=== PATIENT | male | born 1980 | race Caucasian/White ===

== ENCOUNTER 2022-09-24 04:07 | Emergency (ER) | payer BC, SELFPAY ==
[2022-09-24 04:12] VITALS: BP 117/83; PULSE 89; RESP 16; TEMP 36.7; O2SAT 96; BMI 22.2
--- NOTE | 2022-09-24 04:42 | XR_ITS ---
PROCEDURE INFORMATION: Exam: XR Right Shoulder Exam date and time: 09/24/2022 4:45 AM Age: 42 years old Clinical indication: Pain; Patient HX: Patient had a seizure, possible dislocation of right shoulder; Additional info: Seizures TECHNIQUE: Imaging protocol: Radiologic exam of the right shoulder. Views: 2 or more views. COMPARISON: No relevant prior studies available. FINDINGS: Bones/joints: Anterior dislocation of the humerus in relation to the glenoid. No definite fracture. Soft tissues: Moderate soft tissue swelling surrounding the shoulder. IMPRESSION: Anterior dislocation of the humerus in relation to the glenoid. No definite fracture. Moderate soft tissue swelling surrounding the shoulder.
[2022-09-24 04:54] LABS: Basophils # 0.1 K/mm3 (0-0.2); Basophils % 0.6 % (0.1-2.0); Eosinophils # 0.3 K/mm3 (0.0-0.4); Eosinophils % 4.3 % (0.1-12.0); Hematocrit 46.4 % (42.0-52.0); Hemoglobin 15.9 g/dL (14.1-18.0); Lymphocytes # 3.7 K/mm3 (0.7-4.5); Lymphocytes % 47.8 % (10-50); Mean Corpuscular HGB Conc 34.3 g/dL (31.8-35.4); Mean Corpuscular Hemoglobin 30.1 pg (27.0-31.2); Mean Corpuscular Volume 87.5 fl (80-94); Mean Platelet Volume 8.1 fl (7.4-10.4); Monocytes # 0.4 K/mm3 (0.1-1.0); Monocytes % 5.3 % (1.7-9.3); Neutrophils # 3.2 K/mm3 (1.8-7.8); Platelet Count 214 K/mm3 (142-424); Red Cell Distribution Width 12.9 % (11.5-17.5); White Blood Count 7.7 K/mm3 (4.8-10.8)
[2022-09-24 04:56] LABS: Chloride 102 mmol/L (98-107)
[2022-09-24 04:57] LABS: Potassium 3.9 mmoL/L (3.5-5.1); Sodium 139 mmol/L (136-145)
[2022-09-24 04:59] LABS: Alanine Aminotransferase 33 U/L (12-78); Alkaline Phosphatase 74 U/L (38-126); Aspartate Amino Transferase 46 U/L (17-59); Bilirubin,Total 0.3 mg/dl (0.2-1.3); Blood Urea Nitrogen 14 mg/dl (9-20); Creatinine Clearance Estimated 88 mL/min (50-200); Estimated Glomerular Filt Rate 82 ml/min (>60); GFR (African American) 99 ML/MIN (>60)
[2022-09-24 05:00] LABS: Albumin Level 4.6 g/dl (3.5-5.0); Albumin/Globulin Ratio 1.4 (1.1-1.8); Anion Gap 19.9 mEq/L (5-15); Calcium 8.9 mg/dl (8.4-10.2); Carbon Dioxide 21 mmol/L (22.0-30.0); Globulin 3.3 g/dL (1.3-3.2); Glucose 118 mg/dl (74-100); Total Protein,Serum 7.9 g/dl (6.3-8.2)
--- NOTE | 2022-09-24 05:28 | PC.NURSE ---
Dr. Nieto at
[2022-09-24 05:32] VITALS: PULSE 78; RESP 26; TEMP 36.7; O2SAT 99
--- NOTE | 2022-09-24 05:35 | XR_ITS ---
PROCEDURE INFORMATION: Exam: XR Right Shoulder Exam date and time: 09/24/2022 5:39 AM Age: 42 years old Clinical indication: Pain; Shoulder; Right; Additional info: Post shoulder reduction TECHNIQUE: Imaging protocol: Radiologic exam of the right shoulder. Views: 1 view. COMPARISON: CR XR SHOULDER RT MIN 2V 09/24/2022 4:45 AM FINDINGS: Bones/joints: Interval reduction of an anterior shoulder dislocation. No lucent fracture line along the humeral head or glenoid seen on this single image. However, a Hill-Sachs defect may be difficult to visualize on radiographs alone. Consider CT or MRI shoulder if there is clinical concern for Hill-Sachs defect. Soft tissues: Moderate soft tissue swelling surrounding the shoulder. IMPRESSION: 1. Interval reduction of an anterior shoulder dislocation. 2. No lucent fracture line along the humeral head or glenoid seen on this single image. However, a Hill-Sachs defect may be difficult to visualize on radiographs alone. Consider CT or MRI shoulder if there is clinical concern for Hill-Sachs defect. 3. Moderate soft tissue swelling surrounding the shoulder.
[2022-09-24 05:47] VITALS: BP 123/87; PULSE 79; RESP 22; O2SAT 91
[2022-09-24 05:50] VITALS: BP 115/81; BP 122/85; PULSE 73; PULSE 82; RESP 18; RESP 24; O2SAT 96; O2SAT 98
--- NOTE | 2022-09-24 05:50 | HMH.EDGENADL ---
Discharge Plan Disposition Chief Complaint: PAIN Referrals Follow up/Referrals: Provider,Alannah, [Primary Care Provider] - See instructions Terrence Black DO [Staff Physician] - See instructions Clinical Impressions Clinical Impression: Dislocation of shoulder, Seizure Instructions Patient Instructions: Shoulder Dislocation Discharge ED Provider: Gerson (ED)Jose General Adult HPI General Chief complaint: PAIN Stated complaint: has seizure and dislocated right shoulder Time Seen by Provider: 09/24/22 04:30 Mode of Arrival: Ambulatory Source of Information: Patient and Medical Record Limitations: No Limitations Description of Symptoms (Recalled from ER Triage Doc. 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 Social History Smoking Status: Never smoker alcohol intake: never current occupational status: employed Travel in the last 8 weeks: None ROS Obtained: Yes All systems reviewed & no additional complaints except as documented Physical Exam General General appearance: alert Head Head exam: normocephalic Eye Eye exam: Present PERRL and EOMI ENT ENT exam: Present mucous membranes moist Neck Neck exam: Absent trachea midline Respiratory Respiratory exam: Present normal lung sounds bilaterally; Absent respiratory distress Cardiovascular Cardiovascular exam: Present regular rate Abdominal Exam Abdominal exam: Present soft Expanded Upper Extremity Exam Right: Shoulder exam: Present dislocation; Absent full ROM Neuromotor exam: Normal wrist extension Neurosensory exam: Normal radial nerve Vascular exam: Normal radial pulse Neurological Exam Neurological exam: Present alert, oriented X3 and CN II-XII intact; Absent motor sensory deficit Psychiatric Psychiatric exam: Present normal affect Skin Skin exam: Absent rash Medical Decision Making Medical Records Medical records reviewed: Yes I reviewed the patient's medical records. Rubin Inquiry Pt receiving controlled substance: No Vital Signs: 09/24/22 04:12 09/24/22 05:32 09/24/22 05:47 Temperature 98.1 F 98.0 F Temperature Source Oral Oral Pulse Rate Pulse Rate [Left] 89 78 79 Respiratory Rate 16 26 H 22 Blood Pressure Blood Pressure [Right Arm] 117/83 123/87 Blood Pressure Mean [Right Arm] 94 99 Blood Pressure Source [Right Arm] Automatic Cuff Blood Pressure Position [Right Arm] Sitting 02 Sat by Pulse Oximetry 96 99 91 L Oxygen Delivery Method Room Air Room Air Room Air 09/24/22 05:50 09/24/22 05:50 Temperature Temperature Source Pulse Rate 73 Pulse Rate [Left] 82 Respiratory Rate 18 24 Blood Pressure 115/81 Blood Pressure [Right Arm] 122/85 Blood Pressure Mean [Right Arm] 97 Blood Pressure Source [Right Arm] Blood Pressure Position [Right Arm] 02 Sat by Pulse Oximetry 96 98 Oxygen Delivery Method Room Air Room Air Lab Data Lab results reviewed: Yes I reviewed the patient's lab results. Lab Results 09/24/22 04:22: WBC 7.7, RBC 5.30, Hgb 15.9, Hct 46.4, MCV 87.5, MCH 30.1, MCHC 34.3, RDW 12.9, Plt Count 214, MPV 8.1, Neut % (Auto) 42.0, Lymph % (Auto) 47.8, [place] % (Auto) 5.3, Eos % (Auto) 4.3, Baso % (Auto) 0.6, Neut # (Auto) 3.2, Lymph
[2022-09-24 06:13] VITALS: BP 120/79; PULSE 74; RESP 15; TEMP 36.6; O2SAT 96
== END 2022-09-24 06:31 | disposition home or self-care (01) ==
PROVIDERS: Emergency Provider Emergency Medicine
DX: S43.001A Unspecified subluxation of right shoulder joint, initial encounter (principal); R56.9 Unspecified convulsions
CPT/HCPCS: 23650; 73020; 73030; 80053; 85025; 96374; 96375; 99284; 99285

== ENCOUNTER 2023-02-20 16:53 | Emergency (ER) | payer BC, SELFPAY ==
[2023-02-20] VITALS (19 sets, daily range): BP systolic 97–141; BP diastolic 62–84; PULSE 61–82; RESP 13–25; TEMP 36.7; O2SAT 96–100; BMI 23.3
--- NOTE | 2023-02-20 17:03 | HMH.EDGENADL ---
Discharge Plan Disposition Patient Disposition: Home, Self-Care Condition: Fair Referrals Follow up/Referrals: Provider,Referral, [Primary Care Provider] - See instructions Activity Restrictions/Add. Instructions Additional Instructions/Restrictions: Please follow-up with your primary care provider. Please return to the emergency department if you develop any new or worsening symptoms or become concerned for your health. Please use sling for the next week or so. Clinical Impressions Clinical Impression: Seizure Dislocation of shoulder Qualifiers: Encounter type: initial encounter Laterality: right Qualified Code(s): S43.004A - Unspecified dislocation of right shoulder joint, initial encounter Stand Alone Forms Stand Alone Forms: Work/School Release Instructions Patient Instructions: DI for Moderate Sedation Discharge ED Provider: Ramiro Mullins General Adult HPI General Chief complaint: Fall Stated complaint: seziure activity, right shoulder pain Time Seen by Provider: 02/20/23 16:56 History of Present Illness HPI narrative: 42-year-old male, history of seizure disorder, did not take his seizure meds last night, presents with seizure and right shoulder pain concerning for dislocation. He reports that he often dislocates his shoulder after a seizure. He reports no recent fever or illness or other concerns regarding seizure activity. His seizures were typical for him and consistent with missed dose. No other reported injury. Related Data Allergies Allergy/AdvReac Type Severity Reaction Status Date / Time citalopram [From Celexa] Allergy Verified 09/24/22 04:38 [facility] Disclaimer: The information contained in this section may have been updated after the patient was seen, as this information can be updated by other users. Social History (Updated 09/24/22 @ 06:12 by Jose Nieto (ED)MD) Smoking Status: Never smoker alcohol intake: never current occupational status: employed Travel in the last 8 weeks: None ROS Obtained: Yes All systems reviewed & no additional complaints except as documented Physical Exam General General appearance: alert and in no apparent distress Head Head exam: atraumatic and normocephalic Eye Eye exam: Present normal appearance, PERRL and EOMI ENT ENT exam: Present normal oropharynx and normal external ear exam Neck Neck exam: Present normal inspection and full ROM Chest Chest inspection: Present normal inspection and symmetric chest wall rise; Absent tenderness Respiratory Respiratory exam: Present normal lung sounds bilaterally; Absent respiratory distress Cardiovascular Cardiovascular exam: Present regular rate and normal rhythm Abdominal Exam Abdominal exam: Present soft; Absent distention, tenderness or guarding Extremities Exam Extremities exam: Present other (Deformity at the right glenohumeral joint concerning for dislocation. Intact distal neurovascular exam.); Absent edema or joint swelling Back Exam Back exam: Present normal inspection; Absent tenderness Neurological Exam Neurological exam: Present alert and oriented X3; Absent motor sensory deficit Psychiatric Psychiatric exam: Present normal affect and normal mood Skin Skin exam: Present warm, dry and normal color Lymphatic Lymphatic Findings: no adenopathy Medical Decision Making Medical Records Medical records reviewed: Yes I reviewed the patient's medical records. Rubin Inquiry Pt receiving controlled substance: No Rubin was queried for this patient: No Vital Signs: 02/20/23 16:54 02/20/23 17:06 02/20/23 17:11 Temperature 98.1 F Temperature Source Oral Pulse Rate 82 Pulse Rate [Left Radial] 81 Respiratory Rate 16 Blood Pressure 130/76 130/76 Blood Pressure [Right Arm] 116/79 Blood Pressure Mean 85 Blood Pressure Mean [Right Arm] 91 02 Sat by Pulse Oximetry 97 98 Oxygen Delivery Method Room Air Room Air 02/20/23 17:30 02/20/23 18:11
--- NOTE | 2023-02-20 17:07 | XR_ITS ---
PROCEDURE INFORMATION: Exam: XR Right Shoulder Exam date and time: 02/20/2023 5:08 PM Age: 42 years old Clinical indication: Injury or trauma; Other: Seizure; Dislocation; Humerus, proximal end; Right TECHNIQUE: Imaging protocol: Radiologic exam of the right shoulder. Views: 2 or more views. COMPARISON: CR XR SHOULDER RT MIN 2V 09/24/2022 5:39 AM FINDINGS: Bones/joints: Right shoulder dislocation with anterior inferior displacement of the humeral head in relation to the glenoid fossa. No underlying fracture detected. Chronic deformity of the posterolateral aspect of the humeral head likely representing old Hill-Sachs deformity. Soft tissues: Normal. IMPRESSION: Acute right shoulder dislocation with chronic ill Sachs deformity of the humeral head.
--- NOTE | 2023-02-20 17:58 | PC.NURSE ---
PILLOW GIVEN TO HELP PT SHOULDER LITTLE MORE COMFORTABLE
--- NOTE | 2023-02-20 18:14 | XR_ITS ---
PROCEDURE INFORMATION: Exam: XR Right Shoulder Exam date and time: 02/20/2023 6:21 PM Age: 42 years old Clinical indication: Pain; Shoulder; Right; Additional info: Post reduction film TECHNIQUE: Imaging protocol: Radiologic exam of the right shoulder. Views: 2 or more views. COMPARISON: CR XR SHOULDER RT MIN 2V 02/20/2023 5:08 PM FINDINGS: Bones/joints: There is been successful reduction of right shoulder dislocation with restored anatomic alignment. There is a stable Hill-Sachs deformity of the posterolateral aspect of the humeral head. No acute fracture detected. Soft tissues: Normal. IMPRESSION: Successful reduction of right shoulder dislocation.
== END 2023-02-20 19:17 | disposition home or self-care (01) ==
PROVIDERS: Emergency Provider Emergency Medicine
DX: S43.004A Unspecified dislocation of right shoulder joint, initial encounter (principal); G40.909 Epilepsy, unspecified, not intractable, without status epilepticus; X58.XXXA Exposure to other specified factors, initial encounter
CPT/HCPCS: 23650; 73030; 99152; 99153; 99284

== ENCOUNTER 2024-07-17 04:41 | Emergency (ER) | payer BC, SELFPAY ==
[2024-07-17] VITALS (10 sets, daily range): BP systolic 114–153; BP diastolic 79–114; PULSE 62–86; RESP 16–20; TEMP 36.6; O2SAT 97–99; BMI 23.3
--- NOTE | 2024-07-17 04:44 | ED_ITS ---
Discharge Plan Disposition Patient Disposition: Home, Self-Care Prescriptions Prescriptions: No Action levetiracetam 1,000 mg tablet 1,000 mg PO DAILY Patient Comments: TAKE 1 TABLET BY MOUTH TWICE A DAY oxcarbazepine [Oxtellar XR] 300 mg tablet extended release 24 hr 300 mg PO DAILY Patient Comments: PLEASE SEE ATTACHED FOR DETAILED DIRECTIONS Referrals Follow up/Referrals: Provider,Referral, MD [Primary Care Provider] - See instructions Activity Restrictions/Add. Instructions Additional Instructions/Restrictions: Please keep arm in sling until follow-up with orthopedics. Please return to the emergency department if you develop any new or worsening symptoms or become concerned for your health. Clinical Impressions Clinical Impression: Dislocation of shoulder Qualifiers: Encounter type: initial encounter Laterality: right Qualified Code(s): S43.004A - Unspecified dislocation of right shoulder joint, initial encounter Print Language Print Language: Slovenian Discharge ED Provider: Ramiro Mullins General Adult HPI General Chief complaint: Extremity Injury, Upper Stated complaint: dislocated R shoulder Time Seen by Provider: 07/17/24 04:44 History of Present Illness HPI narrative: 44-year-old male with history of epilepsy on Keppra and oxcarbazepine, history of shoulder dislocations presents with shoulder dislocation. He reports that he rolled looped in bed and felt a crinkling in his shoulder and had severe pain. It is obviously dislocated. Related Data Home Medications ?Medication ?Instructions ?Recorded ?Confirmed levetiracetam 1,000 mg tablet 1,000 mg PO DAILY 07/17/24 07/17/24 oxcarbazepine 300 mg 300 mg PO DAILY 07/17/24 07/17/24 tablet,extended release 24 hr (Oxtellar XR) Allergies Allergy/AdvReac Type Severity Reaction Status Date / Time citalopram (From Celexa) Allergy Verified 07/16/24 13:23 [facility] Disclaimer: The information contained in this section may have been updated after the patient was seen, as this information can be updated by other users. Social History Smoking Status: Never smoker alcohol intake: never current occupational status: employed Travel in the last 8 weeks: None Have you lived/traveled outside [place] in past 30 days?: No Contact w/someone who lives/traveled outside US past 30 days?: No Exposure to someone with infectious disease in past 14 days?: No Do you have a fever (greater than 100.4 F or 38 C)?: No Have you tested positive for COVID-19: No Exposed to someone with COVID-19 in past 14 days?: No Do you have a sore throat?: No Do you have a cough?: No Do you have any weakness?: No Do you have any diarrhea?: No Are you experiencing any unusual bleeding?: No Do you have any muscle aches/pain?: No Do you have any abdominal pain?: No Are you experiencing loss of taste or smell?: No ROS Obtained: Yes All systems reviewed & no additional complaints except as documented Physical Exam General General appearance: alert Comment: Uncomfortable appearing Head Head exam: atraumatic and normocephalic Eye Eye exam: Present normal appearance, PERRL and EOMI ENT ENT exam: Present normal oropharynx and normal external ear exam Neck Neck exam: Present normal inspection and full ROM Chest Chest inspection: Present normal inspection and symmetric chest wall rise; Absent tenderness Respiratory Respiratory exam: Present normal lung sounds bilaterally; Absent respiratory distress Cardiovascular Cardiovascular exam: Present regular rate and normal rhythm Abdominal Exam Abdominal exam: Present soft; Absent distention, tenderness or guarding Extremities Exam Extremities exam: Present other (Dislocation of the right shoulder noted, hollowed glenoid fossa, pain with any motion) Back Exam Back exam: Present normal inspection; Absent tenderness Neurological Exam Neurological exam: Present alert and oriented X3; Absent motor sensory deficit Psychiatric Psychiatric exam: Present normal affect and normal mood Skin Skin exam: Present warm, dry and normal color Lymphatic Lymphatic Findings: no adenopathy Medical Decision Making Medical Records Medical records reviewed: Yes I reviewed the patient's medical records. Screening: Per USPSTF and CDC recommendations, given the prevalence of disease in our region, it is our hospital?s policy to screen for HIV and viral Hepatitis for all patients aged 18 and over and those with ongoing risk factors. Rubin Inquiry Pt receiving controlled substance: No Rubin was queried for this patient: No Vital Signs: 07/17/24 04:50 07/17/24 05:12 07/17/24 05:16 Temperature 97.9 F Temperature Source Oral Pulse Rate 86 70 Pulse Rate [Left Radial] 86 Respiratory Rate 16 19 18 Blood Pressure 153/114 H 121/80 Blood Pressure [Left Arm] 120/86 Blood Pressure Mean [Left Arm] 97 Blood Pressure Source [Left Arm] Automatic Cuff Blood Pressure Position [Left Arm] Sitting 02 Sat by Pulse Oximetry 97 98 98 Oxygen Delivery Method Room Air 07/17/24 05:25 Temperature 97.9 F Temperature Source Oral Pulse Rate Pulse Rate [Left Radial] 69 Respiratory Rate 16 Blood Pressure Blood Pressure [Left Arm] 121/80 Blood Pressure Mean [Left Arm] 93 Blood Pressure Source [Left Arm] Automatic Cuff Blood Pressure Position [Left Arm] Supine 02 Sat by Pulse Oximetry 98 Oxygen Delivery Method Room Air Lab Data Lab results reviewed: Yes I reviewed the patient's lab results. Orders (Tests/Meds): ORDERS Category Date Time Status Shoulder XR right miminum 2 views [XR shoulder RT min Exams 07/17/24 05:17 Taken 2V] Stat Medical Decision Narrative: 44-year-old male with history of seizure disorder and frequent shoulder dislocation presents with a right shoulder dislocation. History was obtained via interactive discussion with patient, partner. On arrival, patient is [afebrile, hemodynamically stable, satting appropriately, alert, oriented x4, GCS 15], moving all extremities spontaneously. Full physical exam performed and significant for findings consistent with right shoulder dislocation. Differential includes but is not limited to dislocation, fracture, neurovascular/ligamentous injury. Patient was given propofol during procedural sedation with successful reduction of the right shoulder based on my independent interpretation of the radiographs that were obtained for confirmation. Given patient history, exam and workup, patient's presentation most likely represents atraumatic right shoulder dislocation. Patient discharged in stable condition in sling with instructions to follow-up with Ortho. Procedures Risk/Benefits of Procedure(s) Were Explained: Yes Orthopedic Joint Reduction Joint #1: Time Out Performed: Yes Side: right Joint Reduction Location: shoulder Analgesia: procedural sedation Shoulder Technique Used (if applicable): traction/counter-traction Post-reduction neuro exam: intact Post-reduction vascular: intact Post Reduction X-Ray Obtained: Yes Post Reduction X-Ray Results: reduced Splint Applied: Yes Patient Tolerated Procedure: well Procedural Sedation Presedation Evaluation: Unremarkable HEENT and cardiopulmonary exam A heart and lung assessment was performed on this patient at: 05:10 Mallampati Score:: Class I Indication: fracture/dislocation reduction ASA Class: II IV Propofol dose (mg): 90 Patient Tolerated Procedure: well and no complications Complications: none Critical Care Critical Care Time Critical Care Time: No
--- NOTE | 2024-07-17 05:17 | XR_ITS ---
PROCEDURE INFORMATION: Exam: XR Right Shoulder Exam date and time: 07/17/2024 5:21 AM Age: 44 years old Clinical indication: Pain; Shoulder; Right; Additional info: Shoulder reduction TECHNIQUE: Imaging protocol: Radiologic exam of the right shoulder. Views: 2 or more views. COMPARISON: CR XR SHOULDER RT MIN 2V 02/20/2023 6:21 PM FINDINGS: Bones/joints: The humeral head is normally positioned within the glenoid. Stable Hill-Sachs deformity. Soft tissues: Normal. IMPRESSION: The humeral head is normally positioned within the glenoid. Stable Hill-Sachs deformity.
== END 2024-07-17 06:00 | disposition home or self-care (01) ==
PROVIDERS: Emergency Provider Emergency Medicine
DX: S43.004A Unspecified dislocation of right shoulder joint, initial encounter (principal); X50.0XXA Overexertion from strenuous movement or load, initial encounter
CPT/HCPCS: 23650; 73030; 99284

== ENCOUNTER 2024-09-13 10:56 | Emergency (ER) | payer OTHER, SELFPAY ==
[2024-09-13] VITALS (18 sets, daily range): BP systolic 108–121; BP diastolic 66–80; PULSE 62–88; RESP 11–24; TEMP 36.7–37.1; O2SAT 95–100; BMI 24.2
--- OUTSIDE RECORDS SUMMARY | 2024-09-13 11:04 | XMS_ITS | Clinical Summary ---
Author Organization [facility] Address [address] [place] [id number] Phone Care Team Providers Care Edge Cutter Name Role Phone Unavailable Primary Care Provider Unavailabl e Allergies Active Allergy Reactions Criticality Noted Date Comments Citalopram 08/05/2010 Medications levETIRAcetam (KEPPRA) 1,000 mg Oral TabletIndicatio ns:Seizure disorder (HCC) TAKE 1 TABLET BY MOUTH TWICE A DAY 180 Tablet 3 09/24/2023 Active OXcarbazepine (TRILEPTAL) 300 mg Oral Tablet Take 1.5 Tablets by mouth 2 times daily. (450 mg twice daily) 270 Tablet 3 05/17/2024 Active Active Problems Problem Noted Date Diagnosed Date Nonintractable epilepsy without status epileptic us 01/23/2020 Seizure disorder 02/02/2015 Encounters Date Type Department Care Team Description 09/12/2024 Refill SEP Neurology [facility] [address] [address] Caio Raphael APRN Medication Refill from Last 3 Months Immunizations Immunization Administration Dates Next Due Pfizer SARS-CoV-2 Vaccine 12+ Yrs (Purple Cap) 0 07/22/2020,07/01/2020 Surgical History Surgery Date Site/Laterality Comments ABDOMEN SURGERY as a baby Medical History Medical History Date Comments Epilepsy (HCC) Pyloric stenosis Renal disorder 1980 Family History Medical History Relation Name Comments Seizures Maternal Grandmother Seizures Mother Relation Name Status Comments Maternal Grandmother Mother Social History Tobacco Use Types Packs/Day Years Used Date Smoking Tobacco: Never Smokeless Tobacco: Never Tobacco Cessation:Counseling Given: Not Answered Alcohol Use Standard Drinks/Week Comments Yes 0 (1 standard drink = 0.6 oz pur e alcohol) rarely Sex and Gender Information Value Date Recorded Sex Assigned at Not on file Legal Sex Male 8:56 AM EDT Gender Identity Not on file Sexual Orientation Not on file Obstetrics History Last Filed Vital Signs Vital Sign Reading Time Taken Comments Blood Pressure 110/72 09/21/2022 1:47 PM EDT Pulse 68 09/21/2022 1:47 PM EDT Temperature 36.7 C (98.1 F) 09/21/2022 1:47 PM EDT Respiratory Rate 18 12/04/2021 5:20 AM EDT Oxygen Saturation 95% 09/21/2022 1:47 PM EDT Inhaled Oxygen Concentration - - Weight 63.5 kg (140 lb) 09/21/2022 1:47 PM EDT Height 167.6 cm (5' 6 ) 12/04/2021 3:51 AM EDT Body Mass Index 22.6 12/04/2021 3:51 AM EDT Plan of Treatment Upcoming Encounters Date Type Department Care Team (Late st Contact Info) Description 10/01/2024 3:40 PM EDT Telemedicine SEP Neurology [facility] [address] [place] [address] Caio Raphael, FIELD CROPS HARVEST MACHINE OPERATOR [phone] [address] Health Maintenance Due Date Last Done Comments Annual Wellness Exam 07/04/1983 Hepatitis B Vaccine (1 of 3 - 19+ 3-dose series) 07/04/1999 DTaP/TDaP/Td (1 - Tdap) 07/11/2013 07/10/2013 COVID-19 Vaccine ( - 2023-2 5 season) 2023 07/22/2020, 07/01/2020 Influenza Vaccine (Season Ended) 2024 Meningococcal B Vaccine Aged Out No l onger eligible based on patient's age to complete this topic Pneumococcal Vaccine 0-49 Aged Out No longer eligible based on patient's age to complete this topic Insurance ANTHEM PPO ANTHEM PPO ANTHEM PPO
--- OUTSIDE RECORDS SUMMARY | 2024-09-13 11:04 | XMS_ITS | Encounter Summary ---
Author Organization [place] [address] Care Team Providers Care Sephora Operations Consultant Name Role Phone Unavailable Primary Care Provider Unavailabl e Reason for Visit * Reason Comments Medication Refill Encounter Details Date Type Department Care Team (Late st Contact Info) Description 09/12/2024 Refill SEP Neurology [facility] [address] [place] [address] Caio Raphael, RETORT LOADER [address] [address] Medication Refill Social History Tobacco Use Types Packs/Day Years Used Date Smoking Tobacco: Never Smokeless Tobacco: Never Alcohol Use Standard Drinks/Week Comments Yes 0 (1 standard drink = 0.6 oz pur e alcohol) rarely Sex and Gender Information Value Date Recorded Sex Assigned at Not on file Legal Sex Male 8:56 AM EDT Gender Identity Not on file Sexual Orientation Not on file documented as of this encounter Plan of Treatment Upcoming Encounters Date Type Department Care Team (Late st Contact Info) Description 10/01/2024 3:40 PM EDT Telemedicine SEP Neurology [facility] [address] [place] [address] Caio Raphael, RETORT LOADER [address] [address] documented as of this encounter Visit Diagnoses Diagnosis Seizure disorder (HCC) Unspecified epilepsy without mention of intractable epilepsy documented in this encounter
--- OUTSIDE RECORDS SUMMARY | 2024-09-13 11:04 | XMS_ITS | Clinical Summary ---
Author Organization [facility] Address [address] [place] [id number] Phone [email or web address] Care Team Providers Care Chief Passenger Ship Steward/Stewardess Name Role Phone Josef Singh DO Primary Care Provider [phone] Allergies Active Allergy Reactions Criticality Noted Date Comments Propofol 12/12/2021 Citalopram High 07/14/2010 Medications levETIRAcetam (KEPPRA) 1000 MG tablet Take 1,000 mg by mouth in the morning and 1,000 mg before bedtime. 09/25/2021 Active HYDROcodone-jess taminophen (NORCO) 5-325 MG per tablet HYDROcodone- Acetaminophe n 5-325 MG Oral Tablet QTY: 10 Days: 3 Refills: 0 Written: 10/13/23 Patient Instructions : 10/13/2023 Active OXcarbazepine (TRILEPTAL) 300 MG tablet TAKE 1.5 TABLETS BY MOUTH 2 TIMES DAILY. (450 MG TWICE DAILY) 05/17/2024 Active Active Problems Problem Noted Date Diagnosed Date Seizures 05/22/2023 Return to work evaluation 12/12/2021 Encounters Date Type Department Care Team Description 06/16/2024 Telephone [facility] [address] [place] [address] Halima Hodges RN 06/16/2024 Telephone [facility] [address] [place] [address] Halima Hodges RN 06/15/2024 Telephone [facility] [address] [place] [address] Shantelle Hirsch RN from Last 3 Months Social History Tobacco Use Types Packs/Day Years Used Date Smoking Tobacco: Never Smokeless Tobacco: Never Tobacco Cessation:Counseling Given: Not Answered Intimate Partner Violence Answer Date R ecorded Insults You Not on file 12/10/2020 Threatens You Not on file 12/10/2020 Screams at You Not on file 12/10/2020 Physically Hurt Not on file 12/10/2020 Intimate Partner Violence Score Not on file 12/10/2020 Depression Answer Date Recorded PHQ Total Score 0 07/20/2024 Sex and Gender Information Value Date Recorded Sex Assigned at Not on file Legal Sex Male 8:53 PM CDT Gender Identity Not on file Sexual Orientation Not on file Last Filed Vital Signs Vital Sign Reading Time Taken Comments Blood Pressure 125/82 08/14/2024 11:54 AM EDT Pulse 83 08/14/2024 11:54 AM EDT Temperature 36.5 C (97.7 F) 11/07/2023 2:45 PM EDT Respiratory Rate 18 08/14/2024 11:54 AM EDT Oxygen Saturation 97% 08/14/2024 11:54 AM EDT Inhaled Oxygen Concentration - - Weight 71.7 kg (158 lb) 06/16/2024 1:32 PM EDT Height 167.6 cm (5' 6 ) 06/16/2024 1:32 PM EDT Body Mass Index 25.5 06/16/2024 1:32 PM EDT Plan of Treatment Health Maintenance Due Date Last Done Comments Dental Cleaning/Exam 1980 HIV Screening 1980 Hepatitis C Screening 1980 Hep B Infection Screening - Triple Screen 1998 Hepatitis B Immunization (1 of 3 - 19+ 3-dose series) 07/04/1999 Tetanus Diphtheria and Pertussis Immunization (1 - Tdap) 07/04/1999 Covid-19 Immunization (3 - season) 2023 07/22/2020, 07/01/2020 Annual Preventive Exam 11/06/2024 , 12/13/2020 Influenza Immunization (Season Ended) 2024 HIB Immunization Aged Out No longer e ligible based on patient's age to complete this topic HPV Immunization Aged Out No longer e ligible based on patient's age to complete this topic Hepatitis A Immunization Aged Out No longer eligible based on patient's age to complete this topic Pneumococcal: Ped (0 to 5 Yrs) and At-Risk Member (6 to 64 Yrs) Aged Out No longer eligible b ased on patient's age to complete this topic Polio Immunization Aged Out No longer eligible based on patient's age to complete this topic Varicella Immunization Aged Out No lo nger eligible based on patient's age to complete this topic Insurance OPT OUT NO COPAY NB OPT OUT NO COPAY NB Care Teams Chief Passenger Ship Steward/Stewardess Relationship Specialty Start Date End Date Josef Singh DO [address] [place] [address] PCP - General Orthopedic Surgery 12/12/21
--- OUTSIDE RECORDS SUMMARY | 2024-09-13 11:04 | XMS_ITS | Clinical Summary ---
Author Organization [facility] Address [address] [place] [phone] Phone Care Team Providers Care Research Program Assistant Name Role Phone Rena Kebede MD Primary Care Physician [ ] Conditions or Problems Problem Name Problem Code Onset Date Status Entry Date Provider Comment Standard Description Annotate ABNORMAL CLINICAL FINDING R68.89 (ICD-10-CM ) 11/13 Active 11/13 Sixto Rangel MD Other general symptoms and signs HYPERLIPIDEMIA 67724245 (SNOMED CT) 04/29 Active 04/29 Rena Kebede MD Hyperlipidemia SEIZURE DISORDER [id number] (SNOMED CT) 04/29 Active 04/29 Rena Kebede MD Seizure disorder Medications Medication Instructions Start Date Stop Date Generic Name [facility] Provider DILANTIN 100 MG CAPS 2 tabs in am and 2 in pm 7 PHENYTOIN SODIUM EXTENDED [id number] Madhuri Shaw MD DILANTIN 100 MG CAPS 2 tabs in am and 2 in pm 7 PHENYTOIN SODIUM EXTENDED [id number] Rena Kebede MD DILANTIN 100 MG CAPS 3 DAILY 5 PHENYTOIN SODIUM EXTENDED [id number] Rena Kebede MD DEPAKENE 250 MG ORAL CAPSULE 2 tab BY MOUTH IN AM, 2 IN PM, AND 2 AT NIGHT 0 VALPROIC ACID [id number] Madhuri Shaw MD PHENYTOIN SODIUM EXTENDED 100 MG CAPS 1 AT NIGHT 4 PHENYTOIN SODIUM EXTENDED [id number] Rena Kebede MD DEPAKENE 250 MG ORAL CAPSULE 2 tab IN AM, 2 IN PM, AND 2 AT NIGHT 4 VALPROIC ACID [id number] Rena Kebede MD DEPAKENE 250 MG ORAL CAPSULE 2 tab IN AM, 2 IN PM 9 VALPROIC ACID [id number] Rena Kebede MD DEPAKENE 250 MG ORAL CAPSULE 1 tab IN AM, 2 IN PM 9 VALPROIC ACID [id number] Rena Kebede MD DEPAKENE 250 MG ORAL CAPSULE 1 tab 2 times daily 5 VALPROIC ACID [id number] Rena Kebede MD DEPAKOTE 250 MG TBEC one tab twice a day 9 DIVALPROEX SODIUM [id number] Rena Kebede MD Medications Administered No information available. Allergies, Adverse Reactions, Alerts Allergy Name Reaction Description Start Date Severity Statu s Provider CELEXA Critical Active Rena aragon MD Results Date Name Value Unit Range Flag Description Lab Report: LIPID PANEL, LIP ID PANEL, LIPID PANEL, LIPID PANEL, LIPID PA ... HDLPLASMA 53 mg/dL >OR = 40 N Cholestero l in HDL [Mass/volume] in Serum or Plasma - mg/dL LDLPLASMA 110 mg/dL <130 N Cholesterol in LDL [Mass/volume] in Serum or Plasma - mg/dL Lab Report: LIPID PANEL WITH REFLEX TO DIRECT LDL, LIPID PANEL WITH REFL ... DILANTIN 2.7 ug/mL 10.0-20.0 L phenytoin level, serum SGPT (ALT) 7 U/L 9-46 L Alanine aminotransferase [Enzymatic activity/volume] in Serum or Plasma SGOT (AST) 15 U/L 10-40 N Aspartate aminotransferase [Enzymatic activity/volume] in Serum or Plasma ALK PHOS 57 U/L 40-115 N Alkaline oilvia sphatase [Enzymatic activity/volume] in Blood BILI TOTAL 0.4 mg/dL 0.2-1.2 N Bilirubin. total [Mass/volume] in Serum or Plasma A/G RATIO 1.7 (calc) 1.0-2.5 N Albumin/ Globulin [Mass Ratio] in Serum or Plasma GLOBULIN TOT 2.9 G/DL (CALC) g/dL 1.9-3.7 N Globulin [Mass/volume] in Serum ALBUMIN EOP 4.8 g/dL 3.6-5.1 N Albumin [Mass/volume] in Serum or Plasma by Electrophoresis PROTEIN, TOT 7.7 g/dL 6.1-8.1 N Protein [Mass/volume] in Serum or Plasma CALCIUM 9.4 mg/dL 8.6-10.3 N Calcium [Moles/volume] in Serum or Plasma CO2 26 mmol/L 19-30 N Carbon dioxid e, total [Moles/volume] in Venous blood CHLORIDE BLD 104 mmol/L 98-110 N chloride , blood POTASSIUM 3.8 mmol/L 3.5-5.3 N Potassium [Moles/volume] in Serum or Plasma SODIUM 141 mmol/L 135-146 N Sodium [Moles/volume] in Serum or Plasma BUN/CREAT NOT APPLICABLE (calc) 6-22 Urea nitrogen/Creatinine [Mass Ratio] in Serum or Plasma EGFR 116 mL/min/1. 73m2 >OR = 60 N Glomerular filtration rate/1.73 sq M.predicted [Volume Rate/Area] in Serum, Plasma or Blood by Creatinine-based formula (MDRD) CREATININE 0.82 mg/dL 0.60-1.35 N Creatini ne [Mass/volume] in Serum or Plasma BUN 9 mg/dL 7-25 N Urea nitrogen [Mass/volume] in Serum or Plasma BG RANDOM 78 mg/dL 65-99 N Glucose [Mass/volume] in Blood CHOL/HDL % 4.1 (calc) < OR = 5.0 N chol esterol/HDL ratio, serum, percent LDL 160 MG/DL (CALC) mg/dL <130 H Cholesterol in L DL [Mass/volume] in Serum or Plasma - mg/dL TRIGLYCRDES 121 mg/dL <150 N Triglycer becky [Mass/volume] in Serum or Plasma - mg/dL HDL 60 mg/dL >OR = 40 N Cholesterol in HDL [Mass/volume] in Serum or Plasma - mg/dL CHOLESTEROL 244 mg/dL 125-200 H Cholester ol [Mass/volume] in Serum or Plasma - mg/dL Lab Report: VALPROIC ACID VALPROACDSER 64.1 ug/mL 50.0-100.0 N Valpr oate [Mass/volume] in Serum or Plasma Plan of Care Type Date Detail Referral Neurology Referr al [facility] Neurology [facility] Neurology, [facility] [address] [place], [address] Referral Neurology Referr al [facility] Neurology [facility] Neurology, [facility] [address] [place], [address] Referral Neurology Referr al [facility] Neurology [facility] Neurology, [facility] [address] , [place], [address] Referral excluded fr om report: Pending order Urine Drug Scree n w/o Confirmation Pending order Valproic Acid Pending order Drug Screen w Co nfirmation Pending order Phenytoin (Niranjan tin) Pending order EEG Sleep Depriv ed Pending Order exclud ed from report: Pending order Phenytoin (Niranjan tin) Pending order Valproic Acid Pending order EEG Sleep Depriv ed Pending order Immunization(s) Ordered Pending order Td age 7 yrs or older Pending order IMADM >18YR IM R OUTE 1ST VAC/TOXOID Pending order IMADM >18YR IM R OUTE EA ADDL VAC/TOXOID Pending order CMP Pending order Lipid Panel Pending order Phenytoin (Niranjan tin) Pending order Valproic Acid Pending order Valproic Acid Pending Order exclud ed from report: Pending order Valproic Acid Pending order Valproic Acid Pending Order exclud ed from report: Pending order Valproic Acid Pending order Valproic Acid Pending Order exclud ed from report: Pending order Valproic Acid Pending order Valproic Acid (O utside Lab) Pending Order exclud ed from report: Pending order Valproic Acid (O utside Lab) Pending order Valproic Acid (O utside Lab) Pending order Valproic Acid (O utside Lab) Pending Order exclud ed from report: Pending order Valproic Acid (O utside Lab) Pending order Lipid Panel (Out side Lab) Patient education Medications Procedures Code Procedure Name Date Entry Date CPT-58223 Drug Screen w Confirmation 2 50599 [facility] # Urine Drug Screen w/o Confirmation 916 [facility] # Valproic Acid [facility] Neurology Referral S [facility]rology [place] [facility] # Phenytoin (Dilantin) 201 07/10/06 [facility] # Phenytoin (Dilantin) 201 07/11/03 [facility] Neurology Referral S [facility] [place] 9[facility] # Valproic Acid EEG No SLEEP EVANGELISTA EEG Sleep Deprived 07/10 [facility]ORDER Immunization(s) Ordered 2013 78705 [facility] # CMP 4 57480 [facility] # Lipid Panel 4 CPT-02893 Td age 7 yrs or older 07/10 CPT-50584 IMADM >18YR IM ROUTE 1ST VAC/TOXOID 07/10 CPT-87072 IMADM >18YR IM ROUTE EA ADDL VAC/TOXOID 2 916 [facility] # Valproic Acid 713 [facility] # Phenytoin (Dilantin) 201 06/08/24 916 [facility] # Valproic Acid CPT-64380 Valproic Acid CPT-G8447 Encounter documented using a certified EH R CPT-92990 Valproic Acid CPT-59351 Valproic Acid (Outside Lab) CPT-45674 Valproic Acid (Outside Lab) CPT-85222 Venipuncture CPT-85763 Valproic Acid (Outside Lab) CPT-75132 Lipid Panel (Outside Lab) 01/16/22 Vital Signs Date Name Value Unit Description BMI (Body Mass Index) 21.22 kg/m2 Bod y Mass Index (Ratio) BP Diastolic 73 mm[Hg] blood pressu re, diastolic BP Systolic 117 mm[Hg] blood pressur e, systolic Heart Rate 63 /min pulse rate Height 167.64 cm height in cent imeters E&M Height 66 [in_us] height E&M Weight Measured 131 [lb_av] weight E& M Weight Measured 131 [lb_av] weight E& M Weight Measured 59.55 kg weight in kilograms E&M Body Temperature 98.1 [degF] temperat ure E&M Body Temperature 36.7 Elissa temperat ure in centigrade E&M Immunizations Vaccine Administration Date Standard Description CVX Co de Dose td#1 ov7yr 139 Unknown Advance Directives No information available.
--- NOTE | 2024-09-13 11:18 | XR_ITS ---
PROCEDURE INFORMATION: Exam: XR Right Elbow Exam date and time: 09/13/2024 11:34 AM Age: 44 years old Clinical indication: Other: Seizure, pain TECHNIQUE: Imaging protocol: Radiologic exam of the right elbow. Views: 1 or 2 views. COMPARISON: MRI UPPER EXTREMITY JOINT, W/CONTRAST 07/09/2024 2:36 PM FINDINGS: Bones/joints: Normal. Soft tissues: Normal. IMPRESSION: No acute findings.
--- NOTE | 2024-09-13 11:18 | XR_ITS ---
PROCEDURE INFORMATION: Exam: XR Right Humerus Exam date and time: 09/13/2024 11:34 AM Age: 44 years old Clinical indication: Other: Seizure, pain TECHNIQUE: Imaging protocol: Radiologic exam of the right humerus. Views: 2 or more views. COMPARISON: MRI UPPER EXTREMITY JOINT, W/CONTRAST 07/09/2024 2:36 PM FINDINGS: Bones/joints: Shoulder dislocation. No acute fracture identified. Soft tissues: Normal. IMPRESSION: Shoulder dislocation.
--- NOTE | 2024-09-13 11:18 | XR_ITS ---
PROCEDURE INFORMATION: Exam: XR Right Shoulder Exam date and time: 09/13/2024 11:34 AM Age: 44 years old Clinical indication: Other: Seizure, pain TECHNIQUE: Imaging protocol: Radiologic exam of the right shoulder. Views: 2 or more views. COMPARISON: CR XR SHOULDER RT MIN 2V 07/17/2024 5:21 AM FINDINGS: Bones/joints: Anterior inferior dislocation of the humeral head out of the glenoid fossa. Chronic Hill-Sachs deformity noted. No definite acute fracture. Soft tissues: Normal. IMPRESSION: Anterior inferior dislocation of the humeral head out of the glenoid fossa.
--- NOTE | 2024-09-13 11:19 | ED_ITS ---
Discharge Plan Disposition Patient Disposition: Home, Self-Care Condition: Good Prescriptions Prescriptions: No Action levetiracetam 1,000 mg tablet 1,000 mg PO DAILY Patient Comments: TAKE 1 TABLET BY MOUTH TWICE A DAY oxcarbazepine [Oxtellar XR] 300 mg tablet extended release 24 hr 300 mg PO DAILY Patient Comments: PLEASE SEE ATTACHED FOR DETAILED DIRECTIONS Referrals Follow up/Referrals: Terrence Black DO [Staff Physician, Orthopedics] - See instructions Provider,Referral, [Primary Care Provider, Medical] - See instructions Activity Restrictions/Add. Instructions Additional Instructions/Restrictions: Please wear your shoulder sling for immobilization for at least 24 hours. Follow-up closely with orthopedics for reassessment. I also recommend close follow-up with neurology and your primary care provider given your breakthrough seizure today. Take Tylenol and ibuprofen as needed for pain. Return to the emergency department for new or worsening symptoms. Seizure instructions: Take your medicine exactly as directed. Skipping doses can affect the way your body handles the medicine, which could cause you to have a seizure. Don?t drink alcohol or use any medicine without talking with your provider first. Do not drive a car, operate machinery, swim, climb ladders, or do any other activity that could be dangerous to you or others until your neurologist or primary care provider say it is safe to do so. Be sure that anyone treating you for any health problem knows that you have had a seizure and what medicines you are taking for it. Identify and avoid things that may make you more likely to have a seizure, such as lack of sleep, alcohol or drug use, stress, or not eating. If possible, take a shower instead of a bath. Having a seizure while in a bath can increase the risk of drowning. Recommendations for bystanders during seizure: clear the area to prevent injury; position person on a flat, carpeted surface; do not try to restrain the person; turn the person on his/her side if he/she starts to vomit; keep track of the time the seizure started, how long it lasted, and describe body movements; stay with the person until they regain consciousness; call 911 for seizure lasting longer than 5 minutes, multiple seizures, or if person does not start to wake up after seizure stops; expect confusion and drowsiness after seizure Clinical Impressions Clinical Impression: Instability of right shoulder joint, Breakthrough seizure Dislocation of shoulder Qualifiers: Encounter type: initial encounter Laterality: right Qualified Code(s): S43.004A - Unspecified dislocation of right shoulder joint, initial encounter Stand Alone Forms Stand Alone Forms: Work/School Release Instructions Patient Instructions: DI for Shoulder Dislocation, DI for Seizure Disorder -- Adult, DI for Moderate Sedation Print Language Print Language: French Discharge ED Provider: Charleen Montano General Adult HPI General Chief complaint: PAIN Stated complaint: pain in right shoulder Time Seen by Provider: 09/13/24 11:04 Mode of Arrival: Ambulatory Source of Information: Patient Description of Symptoms (Recalled from ER Triage Doc. by RN): pt presents to the ED with a right shoulder pain after having a seizure this morning around 09:30. pt has hx of epileptic seizures and take daily medications. pt reports having hx of shoulder dislocation after having seizures. no known cause of seizure. PMS present. History of Present Illness HPI narrative: This patient is a 44-year-old male with a history of seizure disorder managed on Keppra and oxcarbazepine presenting to the emergency department for evaluation of concern for breakthrough seizure and possible right shoulder dislocation. Patient reports that he had a seizure this morning around 9:30 AM. His family reports that it was self-limited and he came to not long afterwards, though was postictal. He states that has been having significant right shoulder pain since the seizure and he is concerned that it is dislocated again, as he has a history of recurrent right shoulder dislocations and instability from prior seizures. No other concerns or complaints noted. He denies any recent illnesses and reports compliance with his medications. His last seizure was a few months ago, and he reports he is pretty well-controlled and does not have them very frequently. He does note that he stated later than normal last night, but no other recent changes. Related Data Home Medications ?Medication ?Instructions ?Recorded ?Confirmed levetiracetam 1,000 mg tablet 1,000 mg PO DAILY 08/13/24 oxcarbazepine 300 mg 300 mg PO DAILY 07/17/2411/30 tablet,extended release 24 hr (Oxtellar XR) Allergies Allergy/AdvReac Type Severity Reaction Status Date / Time citalopram (From Celexa) Allergy Verified 08/13/24 14:01 [facility] Disclaimer: The information contained in this section may have been updated after the patient was seen, as this information can be updated by other users. Social History Smoking Status: Never smoker alcohol intake: never current occupational status: employed Travel in the last 8 weeks?: None Have you lived/traveled outside [place] in past 30 days?: No Contact w/someone who lives/traveled outside [place] past 30 days?: No Exposure to someone with infectious disease in past 14 days?: No Do you have a fever (greater than 100.4 F or 38 C)?: No Have you tested positive for COVID-19?: No Exposed to someone with COVID-19 in past 14 days?: No Do you have a sore throat?: No Do you have a cough?: No Do you have any weakness?: No Do you have any diarrhea?: No Are you experiencing any unusual bleeding?: No Do you have any muscle aches/pain?: Yes Do you have any abdominal pain?: No Are you experiencing loss of taste or smell?: No ROS Obtained: Yes All systems reviewed & no additional complaints except as documented Physical Exam General General appearance: alert and in no apparent distress Head Head exam: atraumatic and normocephalic Eye Eye exam: Present normal appearance, PERRL and EOMI ENT ENT exam: Present normal exam, normal oropharynx, mucous membranes moist and normal external ear exam Neck Neck exam: Present normal inspection, full ROM and trachea midline; Absent tenderness Chest Chest inspection: Present normal inspection and symmetric chest wall rise; Absent tenderness Respiratory Respiratory exam: Present normal lung sounds bilaterally; Absent respiratory distress, wheezes, stridor or accessory muscle use Cardiovascular Cardiovascular exam: Present regular rate and normal rhythm Abdominal Exam Abdominal exam: Present soft; Absent distention, tenderness or guarding Extremities Exam Extremities exam: Present tenderness (Tender to palpation of right shoulder joint with limited range of motion secondary to pain. Neurovascularly intact distally) and normal capillary refill; Absent full ROM or edema Back Exam Back exam: Present normal inspection and full ROM; Absent tenderness Neurological Exam Neurological exam: Present alert, oriented X3, CN II-XII intact and normal gait; Absent motor sensory deficit Psychiatric Psychiatric exam: Present normal affect and normal mood Skin Skin exam: Present warm and dry Medical Decision Making Medical Records Medical records reviewed: Yes I reviewed the patient's medical records. Screening: Per USPSTF and CDC recommendations, given the prevalence of disease in our region, it is our hospital?s policy to screen for HIV and viral Hepatitis for all patients aged 18 and over and those with ongoing risk factors. Rubin Inquiry Pt receiving controlled substance: No Vital Signs: 09/13/24 11:00 09/13/24 11:07 09/13/24 11:15 Temperature 98.8 F 98.8 F Temperature Source Oral Oral Pulse Rate 83 88 Pulse Rate [Right] 88 Respiratory Rate 16 16 Blood Pressure 111/74 111/74 Blood Pressure [Right Arm] 111/74 Blood Pressure Mean [Right Arm] 86 Blood Pressure Source Automatic Cuff Blood Pressure Source [Right Arm] Automatic Cuff Blood Pressure Position Supine Blood Pressure Position [Right Arm] Supine 02 Sat by Pulse Oximetry 96 95 95 Oxygen Delivery Method Room Air Room Air 09/13/24 11:30 09/13/24 12:00 09/13/24 12:15 Temperature Temperature Source Pulse Rate 76 77 68 Pulse Rate [Right] Respiratory Rate 14 Blood Pressure Blood Pressure [Right Arm] Blood Pressure Mean [Right Arm] Blood Pressure Source Blood Pressure Source [Right Arm] Blood Pressure Position Blood Pressure Position [Right Arm] 02 Sat by Pulse Oximetry 96 96 97 Oxygen Delivery Method 09/13/24 12:30 09/13/24 13:00 09/13/24 13:03 Temperature Temperature Source Pulse Rate 65 67 Pulse Rate [Right] 69 Respiratory Rate 13 16 15 Blood Pressure 121/68 Blood Pressure [Right Arm] 121/68 Blood Pressure Mean [Right Arm] 85 Blood Pressure Source Blood Pressure Source [Right Arm] Blood Pressure Position Blood Pressure Position [Right Arm] 02 Sat by Pulse Oximetry 97 100 99 Oxygen Delivery Method Room Air 09/13/24 13:14 09/13/24 13:15 09/13/24 13:19 Temperature Temperature Source Pulse Rate 67 Pulse Rate [Right] 66 66 Respiratory Rate 22 14 24 Blood Pressure 113/77 Blood Pressure [Right Arm] 113/77 114/69 Blood Pressure Mean [Right Arm] 89 84 Blood Pressure Source Blood Pressure Source [Right Arm] Blood Pressure Position Blood Pressure Position [Right Arm] 02 Sat by Pulse Oximetry 98 97 97 Oxygen Delivery Method Room Air 09/13/24 13:19 09/13/24 13:20 09/13/24 13:20 Temperature Temperature Source Pulse Rate 62 65 Pulse Rate [Right] 68 Respiratory Rate 21 22 22 Blood Pressure 114/69 108/66 L Blood Pressure [Right Arm] 108/66 L Blood Pressure Mean [Right Arm] 80 Blood Pressure Source Blood Pressure Source [Right Arm] Blood Pressure Position Blood Pressure Position [Right Arm] 02 Sat by Pulse Oximetry 98 97 98 Oxygen Delivery Method 09/13/24 13:25 09/13/24 13:25 09/13/24 13:26 Temperature Temperature Source Pulse Rate 66 65 Pulse Rate [Right] 67 Respiratory Rate 16 11 L 12 Blood Pressure 114/78 112/78 Blood Pressure [Right Arm] 114/78 Blood Pressure Mean [Right Arm] 90 Blood Pressure Source Blood Pressure Source [Right Arm] Blood Pressure Position Blood Pressure Position [Right Arm] 02 Sat by Pulse Oximetry 98 98 98 Oxygen Delivery Method 09/13/24 13:30 09/13/24 13:35 Temperature Temperature Source Pulse Rate 68 67 Pulse Rate [Right] Respiratory Rate 19 11 L Blood Pressure 115/80 114/70 Blood Pressure [Right Arm] Blood Pressure Mean [Right Arm] Blood Pressure Source Blood Pressure Source [Right Arm] Blood Pressure Position Blood Pressure Position [Right Arm] 02 Sat by Pulse Oximetry 99 99 Oxygen Delivery Method Lab Data Lab results reviewed: Yes I reviewed the patient's lab results. Lab Results 09/13/24 11:05: WBC 4.8, RBC 4.93, Hgb 14.6, Hct 43.5, MCV 88.2, MCH 29.6, MCHC 33.6, RDW 12.1, Plt Count 188, MPV 10.2, Neut % (Auto) 61.3, Lymph % (Auto) 27.9, Republic % (Auto) 6.3, Eos % (Auto) 3.1, Baso % (Auto) 1.0, Neut # (Auto) 2.9, Lymph # (Auto) 1.3, Republic # (Auto) 0.3, Eos # (Auto) 0.2, Baso # (Auto) 0.1, Sodium 140, Potassium 4.3, Chloride 108 H, Carbon Dioxide 25, Anion Gap 11.3, BUN 9, Creatinine 0.90, Estimated Creat Clear 101, Estimated GFR 92, Est GFR ( Amer) 111, Glucose 108 H, Calcium 9.0, Total Bilirubin 0.5, AST 28, ALT 18, Alkaline Phosphatase 56, Total Protein 7.5, Albumin 4.5, Globulin 3.0, Albumin/Globulin Ratio 1.5, HCV Ab QUIANA w/Rflx PCR Qn Negative, HIV Ag/Ab Combo Qual Negative 09/13/24 11:05 09/13/24 11:05 Orders (Tests/Meds): ED MEDICATIONS Discontinued Medications Generic Name Dose Route Start Last Admin Trade Name Cristopher PRN Reason Stop Dose Admin Acetaminophen 1,000 mg 09/13/24 11:18 09/13/24 11:37 Acetaminophen 500mg Tab PO 09/13/24 11:19 1,000 mg ONCE ONE Administration Fentanyl Citrate 50 mcg 09/13/24 11:18 09/13/24 11:37 Fentanyl 100mcg/2ml Vial IV 09/13/24 11:19 50 mcg ONCE ONE Administration Levetiracetam 2,500 mg/ Sodium 125 mls @ 250 mls/hr 09/13/24 11:17 09/13/24 11:36 Chloride IV 09/13/24 11:18 250 mls/hr ONCE ONE Administration Ketorolac Tromethamine 15 mg 09/13/24 11:17 09/13/24 11:37 Ketorolac 30mg/Ml Vial IV 09/13/24 11:18 15 mg ONCE ONE Administration Ondansetron HCl 4 mg 09/13/24 11:22 09/13/24 11:37 Ondansetron 4mg/2ml Vial IV 09/13/24 11:23 4 mg ONCE ONE Administration Propofol 200 mg 09/13/24 13:04 09/13/24 13:43 Propofol 10mg/Ml 20ml Vial IV 09/13/24 13:05 200 mg ONCE ONE Administration ORDERS Category Date Time Status Elbow XR right 2 views [XR elbow RT 2V] Stat Exams 09/13/24 11:18 Completed Humerus XR right [XR humerus RT] Stat Exams 09/13/24 11:18 Completed Shoulder XR right miminum 2 views [XR shoulder RT min Exams 09/13/24 11:18 Completed 2V] Stat Shoulder XR right miminum 2 views [XR shoulder RT min Exams 09/13/24 11:57 Completed 2V] Stat Complete Blood Count Auto Diff Stat Lab 09/13/24 11:05 Completed Comprehensive Metabolic Panel Stat Lab 09/13/24 11:05 Completed HIV Combo Stat Lab 09/13/24 11:05 Completed Hepatitis C Ab Qual. W/ RFX Stat Lab 09/13/24 11:05 Completed Medical Decision Narrative: In summary, this patient is a 44-year-old male presenting to the Emergency Department for evaluation of right shoulder pain after a breakthrough seizure that happened this morning. He has known seizure disorder and right shoulder instability with multiple shoulder dislocations in the past. Differential diagnoses considered include but are not limited to shoulder dislocation, fracture, breakthrough seizure, medication noncompliance, electrolyte derangements. Ruling out the most morbid conditions drove assessment. It should be noted patient's history includes seizure disorder and shoulder instability which are not at goal therapy. This complicates all aspects of care by increasing patient's risk for morbidity. I reviewed patient's past medical records and noted prior evaluations for shoulder dislocation requiring reduction in shoulder instability in the past, with last 1 being July of this year in the emergency department. He does have a Hill-Sachs deformity. On exam, the patient is alert, sitting upright in no acute distress with no focal neurologic deficits. He has tenderness to palpation of the right shoulder but is neurovascularly intact. Workup included CBC, CMP, x-rays of the right shoulder, humerus, and elbow. Patient was given IV Toradol, oral Tylenol, and IV fentanyl present medic improvement. He was given Zofran to prevent nausea. He was also loaded with 2.5 g of Keppra.. I independently interpreted x-ray prior to the radiologist read and noted dislocation of the right shoulder without obvious acute fracture. Please see their read for final interpretation. Labs were obtained that demonstrated reassuring CBC chemistry with nothing actionable at this time. On multiple subsequent reassessments, the patient is alert, resting comfortably with no recurrence of seizure activity. He is neurologically intact. Informed consent was obtained after explanation of risk versus benefit of procedural sedation for right shoulder dislocation, and patient elects to proceed with procedural sedation for right shoulder dislocation. This was tolerated well with no complications. It did require multiple attempts under sedation to reduce the shoulder, but third attempt was successful. Please see procedure notes for further documentation. He remained neurovascularly intact afterward and was immobilized in a shoulder sling. Ultimately given no recurrence of seizure activity and successful shoulder reduction, I feel he is appropriate for discharge home with close follow-up with orthopedics as well as with his neurologist. He was given seizure precautions and strict return precautions as well. He was discharged after all questions were answered Procedures Risk/Benefits of Procedure(s) Were Explained: Yes Orthopedic Joint Reduction Joint #1: Time Out Performed: Yes Side: right Joint Reduction Location: shoulder Analgesia: procedural sedation Shoulder Technique Used (if applicable): traction/counter-traction and scapula manipulation Post-reduction neuro exam: intact and no change Post-reduction vascular: intact and no change Post Reduction X-Ray Obtained: Yes Post Reduction X-Ray Results: reduced Splint Applied: Yes Patient Tolerated Procedure: well and no complications Procedural Sedation Presedation Evaluation: Sitting upright no acute distress, neurologically intact. No history of difficult sedation A heart and lung assessment was performed on this patient at: 11:58 Mallampati Score:: Class I Indication: fracture/dislocation reduction ASA Class: II Preparation: monitoring coordinator applied, pulse oximeter, capnometry used, supplemental O2 applied, reversal agents at bedside, suction/airway equipment at bedside and IV secured IV Propofol dose (mg): 200 Patient Tolerated Procedure: well and no complications Complications: none Additional Comments: Patient induced with 80 mg of propofol and given subsequent pushes of 20-50mg for continued sedation. Critical Care Critical Care Time Critical Care Time: Yes Attestation: On 09/13/24, the high probability of a clinically significant, sudden or life threatening deterioration of the following system(s) required my full and direct attention, intervention and personal management. The time I documented below is in addition to time spent performing reported procedures but includes the following listed in this critical care notation. Total Time Total Critical Care Time: 35
[2024-09-13 11:28] LABS: Basophils # 0.1 K/mm3 (0-0.2); Eosinophils # 0.2 Kmm3 (0.0-0.4); Eosinophils % 3.1 % (0.1-12.0); Hematocrit 43.5 % (42.0-52.0); Hemoglobin 14.6 g/dL (14.1-18.0); Immature Granulocytes # 0.02 10^3uL; Immature Granulocytes % 0.4 %; Lymphocytes # 1.3 K/mm3 (0.7-4.5); Lymphocytes % 27.9 % (10-50); Mean Corpuscular HGB Conc 33.6 g/dL (31.8-35.4); Mean Corpuscular Hemoglobin 29.6 pg (27.0-31.2); Mean Corpuscular Volume 88.2 fl (80-94); Mean Platelet Volume 10.2 fl (7.4-10.4); Monocytes # 0.3 K/mm3 (0.1-1.0); Monocytes % 6.3 % (1.7-9.3); Neutrophils # 2.9 K/mm3 (1.8-7.8); Neutrophils % 61.3 % (37.0-80.0); Nucleated Red Blood Cells # 0 10^3/uL; Nucleated Red Blood Cells % 0 %; Platelet Count 188 K/mm3 (142-424); Red Blood Count 4.93 M/mm3 (4.60-6.20); Red Cell Distribution Width 12.1 % (11.5-17.5); Red Cell Distribution Width-SD 38.7 fL; White Blood Count 4.8 K/mm3 (4.8-10.8)
[2024-09-13 11:33] LABS: Alanine Aminotransferase 18 U/L (12-78); Albumin Level 4.5 g/dl (3.5-5.0); Albumin/Globulin Ratio 1.5 (1.1-1.8); Alkaline Phosphatase 56 U/L (38-126); Anion Gap 11.3 mEq/L (5-15); Aspartate Amino Transferase 28 U/L (17-59); Bilirubin,Total 0.5 mg/dl (0.2-1.3); Blood Urea Nitrogen 9 mg/dl (9-20); Carbon Dioxide 25 mmol/L (22.0-30.0); Chloride 108 mmol/L (98-107); Creatinine Clearance Estimated 101 mL/min (50-200); Estimated Glomerular Filt Rate 92 ml/min (>60); GFR (African American) 111 ML/MIN (>60); Glucose 108 mg/dl (74-100); Potassium 4.3 mmoL/L (3.5-5.1); Sodium 140 mmol/L (136-145); Total Protein,Serum 7.5 g/dl (6.3-8.2)
[2024-09-13] MEDS: levETIRAcetam 2,500 MG in 0.9 % SODIUM CHLORIDE 100 ML 250 MG IV (11:36)
[2024-09-13] MEDS: ACETAMINOPHEN 500MG TAB 1000 MG PO (11:37)
[2024-09-13] MEDS: KETOROLAC 30MG/ML VIAL 15 MG IV (11:37)
[2024-09-13] MEDS: FENTANYL 100MCG/2ML VIAL 50 MCG IV (11:37)
[2024-09-13] MEDS: ONDANSETRON 4MG/2ML VIAL 4 MG IV (11:37)
--- NOTE | 2024-09-13 11:57 | XR_ITS ---
PROCEDURE INFORMATION: Exam: XR Right Shoulder Exam date and time: 09/13/2024 1:07 PM Age: 44 years old Clinical indication: Pain; Other: Post-reduction TECHNIQUE: Imaging protocol: Radiologic exam of the right shoulder. Views: 2 or more views. COMPARISON: CR XR SHOULDER RT MIN 2V 09/13/2024 11:34 AM FINDINGS: Bones/joints: Postreduction imaging demonstrates humeral head normally positioned in the glenoid fossa. Stable Hill-Sachs deformity. Soft tissues: Normal. IMPRESSION: Postreduction imaging demonstrates humeral head normally positioned in the glenoid fossa.
[2024-09-13 12:14] LABS: HIV Combo NEGATIVE (Negative)
[2024-09-13 12:22] LABS: Hepatitis C Ab Qual. W/ RFX NEGATIVE (Negative)
[2024-09-13] MEDS: PROPOFOL 10MG/ML 20ML VIAL 200 MG IV (13:43)
== END 2024-09-13 14:34 | disposition home or self-care (01) ==
PROVIDERS: Emergency Provider Emergency Medicine
DX: S43.004A Unspecified dislocation of right shoulder joint, initial encounter (principal); R56.9 Unspecified convulsions
CPT/HCPCS: 73030; 73060; 73070; 80053; 80074; 85025; 87389; 96374; 96375; 99285; J1885; J1953; J2405; J2704; J3010

== ENCOUNTER 2024-11-21 07:11 | Emergency (ER) | payer OTHER, SELFPAY ==
--- OUTSIDE RECORDS SUMMARY | 2024-10-01 13:00 | XMS_ITS | Encounter Summary ---
Author Organization [place] [address] Care Team Providers Care Die Hardener Name Role Phone Unavailable Primary Care Provider Unavailabl e Encounter Details Date Type Department Care Team (Late st Contact Info) Description 10/01/2024 1:00 PM EDT Telemedicine SEP Neurology [facility] [address] [place] [address] Caio Raphael, BOOKING SUPERVISOR [address] [facility] [address] [place] [address] Seizure disorder (HCC) (Primary Dx); Recurrent shoulder dislocation, right Social History Tobacco Use Types Packs/Day Years [...] on file documented as of this encounter Ordered Prescriptions Prescription Sig Dispense Quantity Refills Last Filled Start Date End Date clonazePAM (KLONOPIN) 0.5 mg Oral Tablet Take 1 tablet up to twice daily for no more than 3 days if a seizure occurs (caution sedation/no driving) 6 Tablet 10/01/2024 OXcarbazepine (TRILEPTAL) 300 mg Oral Tablet Take 1.5 Tablets by mouth 2 times daily. (450 mg twice daily) 270 Tablet 3 10/01/2024 levETIRAcetam (KEPPRA) 1,000 mg Oral TabletIndications: Seizure disorder (HCC) Take 1 Tablet by mouth 2 times daily. 180 Tablet 3 10/01/2024 documented in this encounter Progress Notes * Caio Raphael, BOOKING SUPERVISOR - 10/01/2024 1:00 PM EDT No chief complaint on file. HPI: Solo Forbes is a 44 y.o. right handed male who returns for follow-up on 09/30/2024 for epilepsy. Last visit: 10/01/2023 telemedicine Solo Forbes has been doing fairly well since his last visit. Unfortunately, he did have a GTC seizure approximately 3 to 4 weeks ago where he dislocated his right shoulder again. He believes staying up too late was the reason for this event. He denies any other seizures since his last visit 1 year ago. Overall he is very happy with his current seizure control. He is now self-pay after losing his insurance. He is no longer able to afford Oxtellar XR and was transition back to Trileptal 450 mg twice daily. He continues on Keppra 1 g BID. He is usually very good about taking his medication. He has been off work since June 2024. He had a fall at work and reinjured his shoulder. He has been working with physical therapy which helps. He has not been able to follow-up with an orthopedic due to lack of insurance. It sounds as if he is working with a skin care therapist here at [facility] as at [facility]. Seizure Semiology: He gets no auras prior to his seizures. He may get headaches prior to some of the seizures. Other times he will just drop. He has both petit mal and grand mal seizures. He describes the petit mal seizures as being episodes where he will drop things, can't think, stutters, can't focus. These are rather brief, lasting 3-4 seconds. After a GTC he is confused. He has had oral trauma with these episodes. He has not had any incontinence with them. He has dislocated his shoulder on more than oneoccasion. Last seizure: GTC 3-4 weeks from (10/01/2024 appt), prior to this was 02/20/2023, 12/04/2021. He denies any recent petit mal . Triggers: poor sleep, stress, ? chewing gum Previously tried AED's: Keppra 1000 mg BID (current, irritability) Oxcarbazepine 450 mg BID (current) Oxtellar XR 900 mg (current)-->Trileptal d/t cost Dilantin (ineffective) Depakote (ineffective) Previously tried ARGUETA meds: Excedrin Migraine - PRN Imitrex Prior workup: EEG () - normal MRI brain with and without rob () - normal Risk Factors for Seizures: First seizure: around 2001 Alcohol use: rarely Illegal drug use: no Benzdodiazepine use: no History of head trauma with loss of consciousness: denies BEEF TAGGER infection: denies History of febrile seizure: denies Family history of seizures: His mother had epilepsy, but hers went away. His maternal grandmother also has epilepsy. Past Medical History: Diagnosis Date Epilepsy (HCC) Pyloric stenosis Renal disorder 1980 Current Outpatient Medications Medication Sig Dispense Refill levETIRAcetam (KEPPRA) 1,000 mg Oral Tablet TAKE 1 TABLET BY MOUTH TWICE A DAY 180 Tablet 3 OXcarbazepine (TRILEPTAL) 300 mg Oral Tablet Take 1.5 Tablets by mouth 2 times daily. (450 mg twicedaily) 270 Tablet 3 No current facility-administered medications for this visit. Social History Socioeconomic History Marital status: Single Spouse name: Not on file Number of children: Not on file Years of education: Not on file Highest education level: Not on file Occupational History Not on file Tobacco Use Smoking status: Never Smokeless tobacco: Never Vaping Use Vaping status: Never Used Substance and Sexual Activity Alcohol use: Yes Comment: rarely Drug use: No Sexual activity: Not on file Other Topics Concern Not on file Social History Narrative Not on file Social Drivers of Health Financial Resource Strain: Not on file Food Insecurity: Not on file Transportation Needs: Not on file Physical Activity: Not on file Stress: Not on file Social Connections: Not on file Intimate Partner Violence: Not on file Housing Stability: Not on file Review of Systems Negative except as per HPI Physical Exam There were no vitals filed for this visit. Gen: Well developed, well nourished, apathetic Neurology Exam Mental Status: Alert. Speech fluent. Follows commands without difficulty. Cranial Nerves: III, IV, : EOMI. VII: Facial movements symmetric VIII: Hearing grossly intact XI: Shoulder shrug symmetric XII: Tongue protrudes midline Motor: Moves all extremities spontaneously and equally. Assessment and Plan: Solo Forbes is a right handed male here for follow up on 09/30/2024 for seizure disorder. Seizure disorder, likely intractable. His last reported seizure was 3-4 weeks ago (from 10/01/2024) resulting in another right shoulder dislocation. He believes the seizure was brought on by standing up too late, a common trigger for his seizures. We did discuss increasing his seizure medications but given the fact that he has been rather well-controlled I have encouraged him to avoid his known seizure triggers, including sleep deprivation. Since his last visit he could no longer afford Oxtellarand was transition back to Trileptal 450 mg twice daily. He continues on a combination of Keppra 1 g BID. I have provided him with clonazepam 0.5 mg tablets to use twice daily up to 3 days following the seizure. Discussed proper use and potential side effects. He is aware to notify me of any seizures. He is aware of when to present to the emergency room. [place], a license applicant or licensee must be free of seizures, blackout, loss of conscience, or an altered state of awareness for 90 days to obtain or maintain driving privileges in the [facility]. Would advise to familiarize with driving laws from other states if planning to drive out of state after this time frame as the law may vary by state. Avoid operating heavy machinery/weapons, sharp moving objects, open flames and hot surfaces, and unsupervised water (bathing/swimming alone), or being in places with unprotected heights- ladders, roofs etc during this time. Avoid any activity that could put you or someone else in danger if a seizure were to occur. ASM use -recommend CMP to evaluate for hyponatremia which can be associated with Oxtellar. Recommend LEV and OXC levels. Pt requesting routine labs since he does not follow with PCP. Will check TSH and CBC as well. Recurrent dislocation of the right shoulder -unfortunately, he has been dislocating his seizure. Heis currently working with physical therapy but is unable to afford to follow-up with an orthopedic.He is currently working with a skin care therapist to assist in getting him insurance. He will follow-up annually, however is aware that he can talk contact me between visits for any questions or concerns. I did offer to place a referral to care manage but it sounds like he is already worked with [facility] Patient presented today for routine care follow-up through a video visit. Patient has reviewed the terms and conditions of this service as part of the registration for today's visit. Patient is awarethat a video visit does not replace a [id number] exam and further service may be necessary. I advised the patient that we are conducting his/her video visit through the office in a private space onour secure network and this video visit is being conducted in accordance with [facility] telehealth/video visit regulations. Patient had no questions prior to initiation of this visit.Approximately 40 minutes spent in consultation regarding the patient. 50% of this time spent counseling on diagn osis and plan of care. This note was generated using voice recognition technology. It has been reviewed by the undersigned, however, may still contain unintended errors. documented in this encounter Miscellaneous Notes * Patient Instructions - Caio Raphael APRN - 10/01/2024 1:00 PM EDT It was a pleasure to see you today! Continue levetiracetam (Keppra) 1000 mg tablets: Take 1 tablet twice daily (anti seizure medication). Continue oxcarbazepine (Trileptal) 300 mg tablets: Take 1.5 tablet twice daily (antiseizure medication). You have been prescribed Clonazepam 0.5 mg tablet: Take 1 tablets up to twice daily for no more than 3 days duration following a grand mal seizure. (Caution sedation/no driving). Continue any prescribed anti-seizure medications as directed, if prescribed. Missing a dose may lead to a breakthrough seizure. Use weekly pill box, or set an alarm on phone as a reminder to take medication. Call office if you have a seizure. We will ask you the details of the event, including any possibletriggers. Bring your seizure log/journal to every follow up or upload into your [employer] account. First Aid: Seizures A seizure results from a sudden miller of abnormal electrical signals in the brain. Symptoms may range from a minor daze to uncontrollable muscle spasms (convulsions). In many cases, the victim will lose consciousness. A seizure can be caused by a high fever, head injury, drug reaction, or condition such as epilepsy. 1. Protect the head Help the victim to the floor if he or she begins losing muscle control. Turn the person on his or her side to prevent choking. Protect the victim's head from injury by placing something soft, such as folded clothes, beneath it, and by moving objects away from the victim. Don't cause injury by restraining the person or by placing anything in his or her mouth. Remove eyeglasses. 2. Preserve dignity Clear away bystanders. Reassure the victim, who may be confused, drowsy, or hostile when coming out of the seizure. Cover the person or provide dry clothes if muscle spasms have caused a loss of bladder control. 3. Check for injury Make sure the victim's mental state has returned to normal. One way to do this is to ask the personhis or her name, the year, and your location. Injuries can occur to the head, mouth, tongue, or body. 4. Call 911 If the seizure lasts longer than five minutes (Note: Timing the seizure and recovery time is helpful in many cases.) If a second seizure occurs If the victim doesn???t regain consciousness If the victim is If the victim has no history of seizures If the person has sustained an injury during the seizure. (Note: If the injury is not severe or life threatening, it may be more appropriate to seek treatment with the primary care provider.) Per [place], a license applicant or licensee must be free of seizures, blackout, loss of conscience, or an altered state of awareness for 90 days to obtain or maintain driving privileges in the [facility]. Would advise to familiarize with driving laws from other states if planning to drive out of state after this time frame as the law may vary by state. Avoid operating heavy machinery/weapons, sharp moving objects, open flames and hot surfaces, and unsupervised water (bathing/swimming alone), or being in places with unprotected heights- ladders, roofs etc during this time. Avoid any activity that could put you or someone else in danger if a seizure were to occur. documented in this encounter Plan of Treatment Upcoming Encounters Date Type Department Care Team (Late st Contact Info) Description 09/30/2025 2:[address] [facility] Neurology [facility] [address] [place] [address] Caio Raphael APRN [address] [facility] [address] [place] [address] Scheduled Orders Name Type Priority Associated Diagnoses Orde r Schedule COMPREHENSIVE METABOLIC PANEL Lab Routine Seizure disorder (HCC) 1 Occurrences starting 10/01/2024 until 04/01/2025 OXCARBAZEPINE METABOLITE -REF LAB Lab Routine Seizure disorder (HCC) 1 Occurrences starting 10/01/2024 until 10/01/2025 KEPPRA (LEVETIRACETAM) LEVEL -REF LAB Lab Routine Seizure disorder (HCC) 1 Occurrences starting 10/01/2024 until 10/01/2025 documented as of this encounter Visit Diagnoses Diagnosis Seizure disorder (HCC)- Primary Unspecified epilepsy without mention of intractable epilepsy Recurrent shoulder dislocation, right documented in this encounter Discontinued Medications Medication Sig Discontinue Reason Start Date End Da te OXcarbazepine (TRILEPTAL) 300 mg Oral Tablet Take 1.5 Tablets by mouth 2 times daily. (450 mg twice daily) Reorder 05/17/2024 10/01/2024 levETIRAcetam (KEPPRA) 1,000 mg Oral TabletIndications:Seizur e disorder (HCC) TAKE 1 TABLET BY MOUTH TWICE A DAY Reorder 09/14/2024 10/01/2024 documented as of this encounter
[2024-11-21] VITALS (17 sets, daily range): BP systolic 113–129; BP diastolic 71–101; PULSE 53–89; RESP 10–17; TEMP 36.9; O2SAT 95–99; BMI 24.2
--- OUTSIDE RECORDS SUMMARY | 2024-11-21 07:19 | XMS_ITS | Clinical Summary ---
Author Organization [employer] [facility] Address [address] [place] [phone] Phone Care Team Providers Care Flume Worker Name Role Phone Rena Kebede MD Primary Care Physician [ ] Conditions or Problems Problem Name Problem Code Onset Date Status Entry Date Provider Comment Standard Description Annotate ABNORMAL CLINICAL FINDING R68.89 (ICD-10-CM ) 11/13 Active 11/13 Sixto Rangel MD Other general symptoms and signs HYPERLIPIDEMIA 31271481 (SNOMED CT) 04/29 Active 04/29 Rena Kebede MD Hyperlipidemia SEIZURE DISORDER 589988111 (SNOMED CT) 04/29 Active 04/29 Rena Kebede MD Seizure disorder Medications Medication Instructions Start Date Stop Date Generic Name [facility] Provider DILANTIN 100 MG CAPS 2 tabs in am and 2 in pm 7 PHENYTOIN SODIUM EXTENDED [id number] Madhuri Shaw MD DILANTIN 100 MG CAPS 2 tabs in am and 2 in pm 7 PHENYTOIN SODIUM EXTENDED [id number] Rena Kebede MD DILANTIN 100 MG CAPS 3 DAILY 5 PHENYTOIN SODIUM EXTENDED [id number] Rena Kebede MD DEPAKENE 250 MG ORAL CAPSULE 2 tab BY MOUTH IN AM, 2 IN PM, AND 2 AT NIGHT 0 VALPROIC ACID [id number] Madhuri Shaw MD PHENYTOIN SODIUM EXTENDED 100 MG CAPS 1 AT NIGHT 4 PHENYTOIN SODIUM EXTENDED [id number] Rena Kebede MD DEPAKENE 250 MG ORAL CAPSULE 2 tab IN AM, 2 IN PM, AND 2 AT NIGHT 4 VALPROIC ACID [id number] Rena Kebede MD DEPAKENE 250 MG ORAL CAPSULE 2 tab IN AM, 2 IN PM 9 VALPROIC ACID [id number] Rena Kebede MD DEPAKENE 250 MG ORAL CAPSULE 1 tab IN AM, 2 IN PM 9 VALPROIC ACID [id number] Rena Kebede MD DEPAKENE 250 MG ORAL CAPSULE 1 tab 2 times daily 5 VALPROIC ACID [id number] Rena Kebede MD DEPAKOTE 250 MG TBEC one tab twice a day 9 DIVALPROEX SODIUM [id number] Rena Kebede MD Medications Administered No information [...] ALK PHOS 57 U/L 40-115 N Alkaline olivia sphatase [Enzymatic activity/volume] in Blood BILI TOTAL [...] Detail Referral Neurology Referr al SEP Neurology [facility] Neurology, [facility] [address] [place], [address] Referral Neurology Referr al [facility] Neurology [facility], [facility] [place], [address] Referral Neurology Referr al [facility] Neurology [facility] Neurology, [facility] [address] , [place], [address] Referral excluded fr om report: Pending order [...] Procedures Code Procedure Name Date Entry Date CPT-59032 Drug Screen w Confirmation 2 47330 [facility] # Urine Drug Screen w/o Confirmation 916 [facility] # Valproic Acid [facility] Neurology Referral S [facility] Neurology [place] 713 [facility] Test # Phenytoin (Dilantin) 201 07/10/06 713 [facility] Test # Phenytoin (Dilantin) 201 07/11/03 [facility] Neurology Referral S [facility]rology [place] 916 [facility] Test # Valproic Acid EEG No SLEEP [facility] EEG Sleep Deprived 07/10 IMMORDER Immunization(s) Ordered 2013 38038 [facility] Test # CMP 4 66593 [facility] Test # Lipid Panel 4 CPT-71036 Td age 7 yrs or older 07/10 CPT-97361 IMADM >18YR IM ROUTE 1ST VAC/TOXOID 07/10 CPT-83916 IMADM >18YR IM ROUTE EA ADDL VAC/TOXOID 2 916 [facility] # Valproic Acid 713 [facility] # Phenytoin (Dilantin) 201 06/08/24 916 [facility] # Valproic Acid CPT-45220 Valproic Acid CPT-G8447 Encounter documented using a certified EH R CPT-36219 Valproic Acid CPT-55178 Valproic Acid (Outside Lab) CPT-08828 Valproic Acid (Outside Lab) CPT-80709 Venipuncture CPT-93569 Valproic Acid (Outside Lab) CPT-22308 Lipid Panel (Outside Lab) 01/16/22 Vital Signs [...]
--- OUTSIDE RECORDS SUMMARY | 2024-11-21 07:20 | XMS_ITS | Encounter Summary ---
Author Organization [facility] [place] [address] Care Team Providers Care Baggage Handling Supervisor Name Role Phone Unavailable Primary Care Provider Unavailabl e Encounter Details Date Type Department Care Team (Latest Contact Info) Description 10/01/2024 Travel Social History Tobacco Use Types Packs/Day Years [...] Info) Description 09/30/2025 2:00 PM EDT Telemedicine SEP Neurology [facility] [address] [place] [address] Caio Raphael, MUSIC PROFESSOR [address] [address] documented as of this encounter Visit Diagnoses Not on filedocumented in this encounter
--- OUTSIDE RECORDS SUMMARY | 2024-11-21 07:20 | XMS_ITS | Clinical Summary ---
Author Organization [facility] Address [address] [place] [address] [place] [address] Phone Care Team Providers Care Seed Laboratory Technician Name Role Phone Unavailable Primary Care Provider Unavailabl e Allergies Active Allergy Reactions Criticality Noted Date Comments Citalopram 08/05/2010 Medications levETIRAcetam (KEPPRA) 1,000 mg Oral TabletIndicatio ns:Seizure disorder (HCC) Take 1 Tablet by mouth 2 times daily. 180 Tablet 3 10/01/2024 Active OXcarbazepine (TRILEPTAL) 300 mg Oral Tablet Take 1.5 Tablets by mouth 2 times daily. (450 mg twice daily) 270 Tablet 3 10/01/2024 Active clonazePAM (KLONOPIN) 0.5 mg Oral Tablet Take 1 tablet up to twice daily for no more than 3 days if a seizure occurs (caution sedation/no driving) 6 Tablet 10/01/2024 Active Active Problems Problem Noted Date Diagnosed Date Seizure disorder 02/02/2015 Resolved Problems Problem Noted Date Diagnosed Date Resolved Date Nonintractable epilepsy with out status epilepticus 01/23/2020 10/01/2024 Encounters Date Type Department Care Team Description 10/01/2024 1:00 PM EDT Telemedicine SEP Neurology [facility] [address] [place] [address] Caio Raphael APRN Seizure disorder (HCC) (Primary Dx); Recurrent shoulder dislocation, right 10/01/2024 Travel 09/12/2024 Refill SEP Neurology [facility] [address] [place] [address] Caio Raphael APRN Medication Refill (Levetiracetam) from Last 3 Months Immunizations Immunization Administration Dates Next Due Pfizer SARS-CoV-2 Vaccine 12+ Yrs (Purple Cap) 0 07/22/2020,07/01/2020 Surgical History Surgery Date Site/Laterality Comments ABDOMEN SURGERY as a baby Medical History Medical History Date Comments Epilepsy (HCC) Pyloric stenosis Renal disorder 1981 Family History Medical History Relation Name Comments [...] 09/30/2025 2:00 PM EDT Telemedicine SEP Neurology [facility] [address] [place] [address] Caio Raphael APRN [address] [facility] [address] [place] [address] Health Maintenance Due Date Last Done Comments Annual Wellness Exam 07/04/1983 Hepatitis B Vaccine (1 of 3 - 19+ 3-dose series) 07/04/1999 DTaP/TDaP/Td (1 - Tdap) 07/11/2013 07/10/2013 COVID-19 Vaccine ( - 2023-2 5 season) 2023 07/22/2020, 07/01/2020 Influenza Vaccine (#1) 2024 Meningococcal B Vaccine Aged Out No l onger eligible based on patient's age to complete this topic Pneumococcal Vaccine 0-49 Aged Out No longer eligible based on patient's age to complete this topic
--- OUTSIDE RECORDS SUMMARY | 2024-11-21 07:20 | XMS_ITS | Clinical Summary ---
Author Organization [facility] Address [address] [place] [id number] Phone [email or web address] Care Team Providers Care Destination Imagination Coordinator Name Role Phone Josef Singh DO Primary Care Provider [phone] Allergies Active Allergy Reactions Criticality Noted Date [...] Seizures 05/22/2023 Return to work evaluation 12/12/2021 Social History Tobacco Use Types Packs/Day Years [...] HIV Screening 1980 Hepatitis C Screening 1980 HPV Immunization (1 - Male 3-dose series) 07/04/1995 Hep B Infection Screening - Triple Screen 1998 Hepatitis B Immunization (1 of 3 - 19+ 3-dose series) 07/04/1999 Tetanus Diphtheria and Pertussis Immunization (1 - Tdap) 07/04/1999 Covid-19 Immunization (3 - season) 2023 07/22/2020, 07/01/2020 Annual Preventive Exam 11/06/2024 , 12/13/2020 Influenza Immunization (#1) 2024 HIB Immunization Aged Out No longer [...] OPT OUT NO COPAY NB Care Teams Destination Imagination Coordinator Relationship Specialty Start Date End Date Josef Singh DO [address] [place] [address] PCP - General Orthopedic Surgery 12/12/21
--- NOTE | 2024-11-21 07:29 | XR_ITS ---
PROCEDURE INFORMATION: Exam: XR Right Shoulder Exam date and time: 11/21/2024 7:58 AM Age: 44 years old Clinical indication: Injury or trauma; Fall; Blunt trauma (contusions or hematomas); Shoulder; Right; Additional info: Concern for dislocation, fall from seizure TECHNIQUE: Imaging protocol: Radiologic exam of the right shoulder. Views: 2 or more views. COMPARISON: CR XR SHOULDER RT MIN 2V 09/13/2024 1:07 PM FINDINGS: Bones/joints: There is an acute anterior inferior dislocation of the glenohumeral joint. Flattening of the posterior humeral head is consistent with a Hill-Sachs fracture, chronic. Soft tissues: Normal. IMPRESSION: 1. There is an acute anterior inferior dislocation of the glenohumeral joint. 2. Flattening of the posterior humeral head is consistent with a Hill-Sachs fracture, chronic.
--- NOTE | 2024-11-21 07:29 | ECG_ITS ---
APPROVED REPORT Exam: Resting ECG HR:73 bpm ECG Measurements Heart Rate 73 AXES MD 132 P 61 QRSd 81 QRS 29 QT 364 T 38 QTc 390 Conclusion NSR Normal axis Normal intervals NO STEMI Electronically signed by : Ronald Jauregui, 11/21/2024 15:47:59
--- NOTE | 2024-11-21 07:29 | CT_ITS ---
PROCEDURE INFORMATION: Exam: CT Cervical Spine Without Contrast Exam date and time: 11/21/2024 7:56 AM Age: 44 years old Clinical indication: Injury or trauma; Other: Seizure; Blunt trauma; Additional info: Seizure, right frontal head contusion TECHNIQUE: Imaging protocol: Computed tomography of the cervical spine without contrast. Radiation optimization: All CT scans at this facility use at least one of these dose optimization techniques: automated exposure control; mA and/or kV adjustment per patient size (includes targeted exams where dose is matched to clinical indication); or iterative reconstruction. COMPARISON: CT HEAD/BRAIN WO CON 11/21/2024 7:47 AM FINDINGS: Bones/joints: No acute fracture. Normal alignment. There is straightening of cervical lordosis. There is dype-an-cumgoass multilevel degenerative disc disease and there is mild to moderate multilevel spinal canal stenosis secondary to disc osteophyte bulging. Lungs: Lung apices are normal. Soft tissues: Unremarkable. IMPRESSION: No acute cervical spine fracture.
--- NOTE | 2024-11-21 07:29 | CT_ITS ---
PROCEDURE INFORMATION: Exam: CT Head Without Contrast Exam date and time: 11/21/2024 7:47 AM Age: 44 years old Clinical indication: Condition or disease; Convulsions or seizures; Additional info: Seizure, right frontal head contusion TECHNIQUE: Imaging protocol: Computed tomography of the head without contrast. Radiation optimization: All CT scans at this facility use at least one of these dose optimization techniques: automated exposure control; mA and/or kV adjustment per patient size (includes targeted exams where dose is matched to clinical indication); or iterative reconstruction. COMPARISON: No relevant prior studies available. FINDINGS: Brain: There is no evidence of acute parenchymal hemorrhage, extra-axial collection, or acute infarction. There is no mass effect, midline shift, or downward herniation. Cerebral ventricles: No ventriculomegaly. Paranasal sinuses: Visualized sinuses are unremarkable. No fluid levels. Mastoid air cells: Visualized mastoid air cells are well aerated. Bones: Unremarkable. No acute fracture. Soft tissues: Unremarkable. IMPRESSION: No acute intracranial abnormality.
[2024-11-21 07:38] LABS: Hematocrit 44.2 % (42.0-52.0); Hemoglobin 15.4 g/dL (14.1-18.0); Immature Granulocytes % 0.3 %; Mean Corpuscular HGB Conc 34.8 g/dL (31.8-35.4); Mean Corpuscular Hemoglobin 30.6 pg (27.0-31.2); Mean Corpuscular Volume 87.7 fl (80-94); Nucleated Red Blood Cells % 0 %; Platelet Count 185 K/mm3 (142-424); Red Blood Count 5.04 M/mm3 (4.60-6.20); Red Cell Distribution Width-SD 37.9 fL; White Blood Count 5.9 K/mm3 (4.8-10.8)
[2024-11-21 07:39] LABS: Albumin Level 4.6 g/dl (3.5-5.0); Chloride 107 mmol/L (98-107); Sodium 141 mmol/L (136-145)
[2024-11-21 07:40] LABS: Potassium 3.9 mmoL/L (3.5-5.1)
[2024-11-21 07:42] LABS: Alanine Aminotransferase 24 U/L (12-78); Albumin/Globulin Ratio 1.4 (1.1-1.8); Alkaline Phosphatase 71 U/L (38-126); Anion Gap 16.9 mEq/L (5-15); Aspartate Amino Transferase 34 U/L (17-59); Bilirubin,Total 0.5 mg/dl (0.2-1.3); Blood Urea Nitrogen 8 mg/dl (9-20); Carbon Dioxide 21 mmol/L (22.0-30.0); Creatine Kinase 82 U/L (55-170); Creatinine Clearance Estimated 101 mL/min (50-200); Creatinine,Serum 0.90 mg/dl (0.66-1.25); Estimated Glomerular Filt Rate 92 ml/min (>60); GFR (African American) 111 ML/MIN (>60); Globulin 3.2 g/dL (1.3-3.2); Total Protein,Serum 7.8 g/dl (6.3-8.2)
--- NOTE | 2024-11-21 07:42 | HMH.EDGENADL ---
Discharge Plan Disposition Patient Disposition: Home, Self-Care Condition: Good Prescriptions Prescriptions: No Action levetiracetam 1,000 mg tablet 1,000 mg PO DAILY Patient Comments: TAKE 1 TABLET BY MOUTH TWICE A DAY oxcarbazepine [Oxtellar XR] 300 mg tablet extended release 24 hr 300 mg PO DAILY Patient Comments: PLEASE SEE ATTACHED FOR DETAILED DIRECTIONS Referrals Follow up/Referrals: Provider,Referral, MD [Primary Care Provider, Medical] - See instructions Activity Restrictions/Add. Instructions Additional Instructions/Restrictions: Please continue taking your Keppra 1000 mg twice daily. If you have any new or worsening symptoms please return. Anytime you have a seizure, it is mandated by [place] state law that you cannot drive for 90 days. Please continue wearing the sling, and contact Dr. Blakc's office for follow up about the recurrent shoulder dislocation. Clinical Impressions Clinical Impression: Seizure Dislocation of shoulder Qualifiers: Encounter type: initial encounter Laterality: right Qualified Code(s): S43.004A - Unspecified dislocation of right shoulder joint, initial encounter Instructions Patient Instructions: DI for Seizure Disorder -- Adult Print Language Print Language: Citizen Of [place] Discharge ED Provider: Ronald Jauregui General Adult HPI General Chief complaint: Seizure Stated complaint: AO 11/21/24 06:38, fell, inj rt shoulder Time Seen by Provider: 11/21/24 07:15 Mode of Arrival: Ambulatory Source of Information: Patient Description of Symptoms (Recalled from ER Triage Doc. by RN): patient states he had a seizure around 630 am while using the bathroom. he reports he has history of seizures unsure on last one. he doesnt remmeber anything about the seizure or how long it lasted. he reports when he fell off toilet he did hit his head has a hematoma to right temporal area, he also reports right shoulder pain. History of Present Illness HPI narrative: This is a 44-year-old male patient, with past medical history of seizure disorder on Keppra and oxcarbazepine, who is presenting to the emergency department today for evaluation of seizures. The patient states that he forgot to take his seizure medication last night and this morning at around 6 AM he was in the bathroom and had a seizure that was witnessed by his girlfriend. His girlfriend is not currently present to provide collateral history so I am unsure how long the seizure lasted for. The patient states that he remembers waking up confused with pain in his head and his right shoulder. He has had multiple right shoulder dislocations chiefly that occurred during his seizures in the past. He did suffer tongue biting. He did not experience urinary incontinence. Related Data Home Medications ?Medication ?Instructions ?Recorded ?Confirmed levetiracetam 1,000 mg tablet 1,000 mg PO DAILY 07/17/24 08/13/24 oxcarbazepine 300 mg 300 mg PO DAILY 07/17/24 08/13/24 tablet,extended release 24 hr (Oxtellar XR) Allergies Allergy/AdvReac Type Severity Reaction Status Date / Time citalopram (From Celexa) Allergy Verified 08/13/24 14:01 [facility] Disclaimer: The information contained in this section may have been updated after the patient was seen, as this information can be updated by other users. Social History Smoking Status: Never smoker alcohol intake: never current occupational status: employed Travel in the last 8 weeks?: None Have you lived/traveled outside US in past 30 days?: No Contact w/someone who lives/traveled outside US past 30 days?: No Exposure to someone with infectious disease in past 14 days?: No Do you have a fever (greater than 100.4 F or 38 C)?: No Have you tested positive for COVID-19?: No Exposed to someone with COVID-19 in past 14 days?: No Do you have a sore throat?: No Do you have a cough?: No Do you have any weakness?: No Do you have any diarrhea?: No Are you experiencing any unusual bleeding?: No Do you have any muscle aches/pain?: No Do you have any abdominal pain?: No Are you experiencing loss of taste or smell?: No ROS Obtained: Yes Systems reviewed as appropriate & no additional complaints except as documented Physical Exam General General appearance: other (See MDM) Respiratory Respiratory exam: Present other (See MDM) Cardiovascular Cardiovascular exam: Present other (See MDM) Neurological Exam Neurological exam: Present other (See MDM) Medical Decision Making Medical Records Medical records reviewed: Yes I reviewed the patient's medical records. Screening: Per USPSTF and CDC recommendations, given the prevalence of disease in our region, it is our hospital?s policy to screen for HIV and viral Hepatitis for all patients aged 18 and over and those with ongoing risk factors. Rubin Inquiry Pt receiving controlled substance: No Rubin was queried for this patient: No Vital Signs: 11/21/24 07:21 11/21/24 07:30 11/21/24 08:06 Temperature 98.4 F Temperature Source Oral Pulse Rate 82 Pulse Rate [Right Radial] 89 Respiratory Rate 16 16 12 Blood Pressure Blood Pressure [Right Arm] 118/84 Blood Pressure Mean [Right Arm] 95 Blood Pressure Source [Right Arm] Automatic Cuff Blood Pressure Position [Right Arm] Supine 02 Sat by Pulse Oximetry 96 97 Oxygen Delivery Method Room Air Oxygen Flow Rate (LPM) 11/21/24 08:30 11/21/24 09:00 11/21/24 09:24 Temperature Temperature Source Pulse Rate 60 61 58 L Pulse Rate [Right Radial] Respiratory Rate 12 17 13 Blood Pressure 123/81 120/81 Blood Pressure [Right Arm] Blood Pressure Mean [Right Arm] Blood Pressure Source [Right Arm] Blood Pressure Position [Right Arm] 02 Sat by Pulse Oximetry 95 97 96 Oxygen Delivery Method Room Air Room Air Oxygen Flow Rate (LPM) 11/21/24 09:32 11/21/24 10:00 11/21/24 10:30 Temperature Temperature Source Pulse Rate 64 62 61 Pulse Rate [Right Radial] Respiratory Rate 10 L 14 15 Blood Pressure 120/75 114/73 115/77 Blood Pressure [Right Arm] Blood Pressure Mean [Right Arm] Blood Pressure Source [Right Arm] Blood Pressure Position [Right Arm] 02 Sat by Pulse Oximetry 97 95 96 Oxygen Delivery Method Oxygen Flow Rate (LPM) 11/21/24 10:50 11/21/24 10:55 11/21/24 10:56 Temperature 98.4 F 98.4 F Temperature Source Oral Oral Pulse Rate 60 Pulse Rate [Right Radial] 59 L 61 Respiratory Rate 15 14 12 Blood Pressure 128/78 Blood Pressure [Right Arm] 115/77 128/78 Blood Pressure Mean [Right Arm] 89 94 Blood Pressure Source [Right Arm] Automatic Cuff Automatic Cuff Blood Pressure Position [Right Arm] Supine Supine 02 Sat by Pulse Oximetry 96 96 99 Oxygen Delivery Method Nasal Cannula Nasal Cannula Oxygen Flow Rate (LPM) 2 2 11/21/24 11:00 11/21/24 11:00 11/21/24 11:15 Temperature 98.4 F Temperature Source Oral Pulse Rate Pulse Rate [Right Radial] 53 L Respiratory Rate 13 13 13 Blood Pressure 123/76 119/71 Blood Pressure [Right Arm] 123/76 Blood Pressure Mean [Right Arm] 91 Blood Pressure Source [Right Arm] Automatic Cuff Blood Pressure Position [Right Arm] Supine 02 Sat by Pulse Oximetry 97 Oxygen Delivery Method Nasal Cannula Oxygen Flow Rate (LPM) 2 11/21/24 11:30 Temperature Temperature Source Pulse Rate 64 Pulse Rate [Right Radial] Respiratory Rate 13 Blood Pressure 113/78 Blood Pressure [Right Arm] Blood Pressure Mean [Right Arm] Blood Pressure Source [Right Arm] Blood Pressure Position [Right Arm] 02 Sat by Pulse Oximetry 97 Oxygen Delivery Method Oxygen Flow Rate (LPM) Lab Data Lab Results 11/21/24 07:25: WBC 5.9, RBC 5.04, Hgb 15.4, Hct 44.2, MCV 87.7, MCH 30.6, MCHC 34.8, RDW 11.8, Plt Count 185, MPV 10.2, Neut % (Auto) 47.4, Lymph % (Auto) 40.9, [place] % (Auto) 6.2, Eos % (Auto) 4.4, Baso % (Auto) 0.8, Neut # (Auto) 2.8, Lymph # (Auto) 2.4, [place] # (Auto) 0.4, Eos # (Auto) 0.3, Baso # (Auto) 0.1, Sodium 141, Potassium 3.9, Chloride 107, Carbon Dioxide 21 L, Anion Gap 16.9 H, BUN 8 L, Creatinine 0.90, Estimated Creat Clear 101, Estimated GFR 92, Est GFR ( Amer) 111, Glucose 119 H, Calcium 9.1, Total Bilirubin 0.5, AST 34, ALT 24, Alkaline Phosphatase 71, Total Creatine Kinase 82, Total Protein 7.8, Albumin 4.6, Globulin 3.2, Albumin/Globulin Ratio 1.4 11/21/24 08:55: Urine Color Yellow, Urine Appearance Clear, Urine pH 6.0, Ur Specific [place] >= 1.030, Urine Protein 2+ A, Urine Glucose (UA) Negative, Urine Ketones Negative, Urine Blood Negative, Urine Nitrate Negative, Urine Bilirubin Negative, Urine Urobilinogen 0.2, Ur Leukocyte Esterase Negative, Urine RBC 3-5, Urine WBC 3-5, Ur Squamous Epith Cells 3-5, Urine Bacteria 1+, Urine Sperm 1+, Urine Opiates Screen Negative, Urine Methadone Screen Negative, Ur Barbituates Screen Negative, Ur Phencyclidine Scrn Negative, Ur Amphetamines Screen Negative, U Benzodiazepines Scrn Negative, Urine Cocaine Screen Negative, U Marijuana (THC) Screen Negative 11/21/24 07:25 11/21/24 07:25 Orders (Tests/Meds): ED MEDICATIONS Discontinued Medications Generic Name Dose Route Start Last Admin Trade Name Cristopher PRN Reason Stop Dose Admin Fentanyl Citrate 75 mcg 11/21/24 07:29 11/21/24 08:08 Fentanyl 100mcg/2ml Vial IV 11/21/24 07:30 75 mcg ONCE ONE Administration Levetiracetam 1,500 mg/ Sodium 115 mls @ 230 mls/hr 11/21/24 07:29 11/21/24 08:08 Chloride IV 11/21/24 07:30 230 mls/hr ONCE ONE Administration Morphine Sulfate 4 mg 11/21/24 09:01 11/21/24 09:06 Morphine 4mg/Ml Syringe IV 11/21/24 09:02 4 mg ONCE ONE Administration Ondansetron HCl 4 mg 11/21/24 07:29 11/21/24 08:07 Ondansetron 4mg/2ml Vial IV 11/21/24 07:30 4 mg ONCE ONE Administration Propofol 100 mg 11/21/24 10:41 11/21/24 10:50 Propofol 10mg/Ml 20ml Vial IV 11/21/24 10:42 80 mg ONCE ONE Administration ORDERS Category Date Time Status CT cervical spine wo con Stat Cat Scan 11/21/24 07:[address] head/brain wo con Stat Cat Scan 11/21/24 07:29 Completed Shoulder XR right miminum 2 views [XR shoulder RT min Exams 11/21/24 07:29 Completed 2V] Stat XR shoulder RT 1V Stat Exams 11/21/24 10:58 Completed CBC w/Auto Diff [Complete Blood Count Auto Diff] Stat Lab 11/21/24 07:25 Completed CK [Creatine Kinase] Stat Lab 11/21/24 07:25 Completed CMP [Comprehensive Metabolic Panel] Stat Lab 11/21/24 07:25 Completed Levetiracetam (Keppra) Stat Lab 11/21/24 07:25 Received UA [Urinalysis and Microscopic] Stat Lab 11/21/24 08:55 Completed UDS [Drug Screen,Urine] Stat Lab 11/21/24 08:55 Completed ECG Data Tracing #1: I reviewed this ECG and interpreted as documented below: EKG personally interpreted by me demonstrates normal sinus rhythm with a rate of 73 bpm, normal axis, no DE prolongation, narrow QRS, no QTc prolongation. No ST elevation or depression. No overt signs of ischemia or arrhythmia. Medical Decision Narrative: In summary this is a 44-year-old male patient who is presenting to the emergency department today for evaluation of a seizure that occurred this morning in which he fell to the ground and struck his head and is now experiencing head pain as well as right shoulder pain. The patient's comorbidities include a history of seizure disorder on Keppra and oxcarbazepine as well as recurrent right shoulder dislocations that chiefly occur during his seizure activity. On initial evaluation of the patient they were resting comfortably in no acute distress and nontoxic in appearance. They are hemodynamically stable, saturating well room air, and are neurologically intact. On physical examination the patient has a GCS of 15. On primary survey his breath sounds were intact bilaterally and his airway is intact. He has good distal pulses. On traumatic survey he does have a large right frontal hematoma with associated ecchymosis. There is no scalp lacerations hematomas or abrasions. No midface instability or jaw malocclusion. He does have a small laceration to the lateral aspect of the right tongue from tongue biting. This laceration is not large enough to be amenable for repair. He has no C, T, or L-spine tenderness. No tenderness along the clavicles. No tenderness of the anterior chest wall. Abdomen is atraumatic and nontender to palpation. Pelvis is stable. He has no tenderness along the left upper extremity or bilateral lower extremities. No obvious deformities of his extremities. Along the right upper extremity, the glenoid fossa feels empty on palpation. He has significant pain with range of motion passively of the right upper extremity. Based on his clinical exam I do have suspicion for right shoulder dislocation. Patient is neurovascularly intact in the right upper extremity Differential diagnosis to include breakthrough seizure, medication noncompliance, electrolyte derangement, drugs of abuse, subtherapeutic Keppra dosing, right shoulder dislocation, intracranial hemorrhage, skull fracture, cervical spine fracture, among others. The patient takes 1000 mg of Keppra twice daily at home. He states that after his seizure this morning and prior to arrival to the hospital, he did take his Keppra. Given that he missed his dose last night we will load him with an additional 1500 mg of Keppra for a total of 2500 mg this morning. In order to tolerate x-ray I have administered 75 mcg of fentanyl. We will proceed with x-rays of the right shoulder as well as a CT scan of the head and cervical spine. We have also obtained hematologic labs. Labs were personally turbid by me and demonstrated No acute abnormalities. No evidence of urinary tract infection. No electrolyte derangements or evidence of acute kidney injury. We did send a Keppra level. CT of the head and cervical spine were obtained. These were personally charted by me and demonstrate no large intracranial hemorrhages or cervical spine fractures. Official radiology read was in agreement and stated that there was no acute abnormality. X-ray of the right shoulder was obtained and personally turbid by me and demonstrated a shoulder dislocation. Official radiology read characterizes this as an anterior inferior displacement. I did offer to reduce the shoulder without sedation and with IV analgesia. Patient declined. Therefore we did have him sign a informed consent form. We proceeded with procedural sedation with use of propofol. Please see procedure note for details. Patient tolerated this procedure well. Shoulder was successfully reduced. We obtained a postreduction film that confirmed successful reduction. I have requested the patient follow-up with his neurologist in [facility] through [place] given that he had a seizure today. The etiology of his seizure is likely due to the fact that he did not take his antiepileptic medication last night. In addition, I have asked that he follow-up with Dr. Black through orthopedics who is already aware of his current shoulder dislocation. He agrees with this plan. At this time all questions have been answered and all parties are agreeable with the decision to discharge home Procedures Procedural Sedation A heart and lung assessment was performed on this patient at: 10:40 Mallampati Score:: Class I Indication: fracture/dislocation reduction ASA Class: I Preparation: desk monitor applied, pulse oximeter, capnometry used, supplemental O2 applied, suction/airway equipment at bedside and IV secured IV Propofol dose (mg): 80 Patient Tolerated Procedure: well Complications: none Additional Comments: N.p.o. status was confirmed and last meal was greater than 12 hours ago. Patient was placed on end-tidal capnography as well as supplemental oxygen via nasal cannula. We did preoxygenated for this procedure for several minutes at a time. Informed consent was obtained and the patient decided to proceed with procedural sedation. 80 mg of propofol was administered via rapid IV push. Sedation was achieved within a matter of seconds. We used traction-countertraction and the shoulder was successfully reduced. The patient returned to his baseline mental status and less than 10 minutes. Postprocedural x-ray was obtained and confirmed successful reduction of the right shoulder. Critical Care Critical Care Time Critical Care Time: No
[2024-11-21 07:43] LABS: Calcium 9.1 mg/dl (8.4-10.2); Glucose 119 mg/dl (74-100)
--- NOTE | 2024-11-21 07:46 | PC.NURSE ---
pt taken to Rad by stretcher at this time
--- NOTE | 2024-11-21 07:47 | PC.NURSE ---
pt transported to xr via stretcher
--- NOTE | 2024-11-21 08:01 | PC.NURSE ---
pt returns to room from RAD by stretcher at this time
[2024-11-21] MEDS: ONDANSETRON 4MG/2ML VIAL 4 MG IV (08:07)
[2024-11-21] MEDS: FENTANYL 100MCG/2ML VIAL 75 MCG IV (08:08)
[2024-11-21] MEDS: levETIRAcetam 1,500 MG in 0.9 % SODIUM CHLORIDE 100 ML 230 MG IV (08:08)
[2024-11-21 09:02] LABS: Microscopic, Urine URINE MICROSCOPIC (MICROSCOPIC)
[2024-11-21 09:04] LABS: Bilirubin,Urine Negative (Negative); Color,Urine YELLOW (Yellow); Glucose,Urine (UA) Negative (Negative); Ketones,Urine Negative (Negative); Leukocyte Esterase,Urine Negative (Negative); PH,Urine 6.0 (5.0-8.5); Protein,Urine 2+ (Negative); Urobilinogen,Urine 0.2 EU/dl (0.2)
[2024-11-21] MEDS: MORPHINE 4MG/ML SYRINGE 4 MG IV (09:06)
[2024-11-21 09:12] LABS: Bacteria,Urine 1+ /lpf; Specific Gravity, Urine >= 1.030 (1.005-1.030); Sperm,Urine 1+ /lpf
[2024-11-21 09:16] LABS: Barbiturates Screen,Urine Negative ng/ml (<200); Benzodiazepines Screen,Urine Negative ng/ml (<200)
[2024-11-21 09:17] LABS: Amphetamine/Metha Screen,Urine Negative ng/ml (<1000)
[2024-11-21 09:19] LABS: Methadone Screen,Urine Negative ng/ml (<300); Opiate Screen,Urine Negative ng/ml (<300)
[2024-11-21 09:20] LABS: Phencyclidine Screen,Urine Negative ng/ml (<25)
--- NOTE | 2024-11-21 10:58 | XR_ITS ---
PROCEDURE INFORMATION: Exam: XR Right Shoulder Exam date and time: 11/21/2024 10:46 AM Age: 44 years old Clinical indication: Other: Post reduction TECHNIQUE: Imaging protocol: Radiologic exam of the right shoulder. Views: 1 view. COMPARISON: CR XR SHOULDER RT MIN 2V 11/21/2024 7:58 AM FINDINGS: Bones/joints: Status post reduction of glenohumeral dislocation. Alignment is now anatomic. There is redemonstration of chronic Hill-Sachs fracture. Soft tissues: Normal. IMPRESSION: Satisfactory reduction of the glenohumeral dislocation.
--- NOTE | 2024-11-21 11:57 | PC.NURSE ---
pt ambulated fine
== END 2024-11-21 12:31 | disposition home or self-care (01) ==
PROVIDERS: Emergency Provider Student in an Organized Health Care Education/Training Program
DX: G40.909 Epilepsy, unspecified, not intractable, without status epilepticus (principal); S43.004A Unspecified dislocation of right shoulder joint, initial encounter; W19.XXXA Unspecified fall, initial encounter
CPT/HCPCS: 23655; 70450; 72125; 73020; 73030; 80053; 80177; 80307; 81001; 82550; 85025; 93005; 96374; 96375; 99152; 99285; J1953; J2270; J2405; J2704; J3010

== ENCOUNTER 2024-11-23 16:45 | Emergency (ER) | payer OTHER, SELFPAY ==
--- OUTSIDE RECORDS SUMMARY | 2024-10-01 13:00 | XMS_ITS | Encounter Summary ---
Author Organization [place] [address] Care Team Providers Care Shoveler Name Role Phone Unavailable Primary Care Provider Unavailabl e Encounter Details Date Type Department Care Team (Late st Contact Info) Description 10/01/2024 1:00 PM EDT Telemedicine SEP Neurology [facility] [address] [place] [address] Caio Raphael, CONCIERGE [address] 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 Seizure Semiology: He gets no auras prior [...] head trauma with loss of consciousness: denies COOLING TOWER TECHNICIAN infection: denies History of febrile seizure: denies [...] obtain or maintain driving privileges in the [facility]. Would advise to familiarize with driving laws [...] an orthopedic.He is currently working with a zoo caretaker to assist in getting him insurance. He will follow-up annually, however is aware that he can talk contact me between visits for any questions or concerns. I did offer to place a referral to care manage but it sounds like he is already worked with [facility] Patient presented today for routine care follow-up through a video visit. Patient has reviewed the terms and conditions of this service as part of the registration for today's visit. Patient is awarethat a video visit does not replace a [id number] exam and further service may be necessary. I advised the patient that we are conducting his/her video visit through the office in a private space onour secure network and this video visit is being conducted in accordance with [facility] telehealth/video visit regulations. Patient had no [...] every follow up or upload into your [employer] account. First Aid: Seizures A seizure results [...] obtain or maintain driving privileges in the [facility]. Would advise to familiarize with driving laws [...] Info) Description 09/30/2025 2:00 PM EDT Telemedicine [facility] [place] [facility] [address] [place] [address] [address]N [address] [facility] [address] [place] [address] Scheduled Orders Name Type Priority [...]
[2024-11-23] VITALS (18 sets, daily range): BP systolic 126–156; BP diastolic 78–100; PULSE 57–72; RESP 13–22; TEMP 36.6–37.1; O2SAT 94–99; BMI 24.2
--- OUTSIDE RECORDS SUMMARY | 2024-11-23 18:55 | XMS_ITS | Clinical Summary ---
Author Organization [employer] [facility] Address [address] [place] [phone] Phone Care Team Providers Care Cloth Bleaching Range Tender Name Role Phone Rena Kebede MD Primary Care Physician [phone] [ ] Conditions or Problems Problem Name Problem Code Onset Date Status Entry Date Provider Comment Standard Description Annotate ABNORMAL CLINICAL FINDING R68.89 (ICD-10-CM ) 11/13 Active 11/13 Sixto Rangel MD Other general symptoms and signs HYPERLIPIDEMIA 31921615 (SNOMED CT) 04/29 Active 04/29 Rena Kebede MD Hyperlipidemia SEIZURE DISORDER [id number] (SNOMED CT) 04/29 Active 04/29 Rena Kebede MD Seizure disorder Medications Medication Instructions Start Date Stop Date Generic Name [facility] Provider DILANTIN 100 MG CAPS 2 tabs in am and 2 in pm 7 PHENYTOIN SODIUM EXTENDED [id number] Madhuri Shaw MD DILANTIN 100 MG CAPS 2 tabs in am and 2 in pm 7 PHENYTOIN SODIUM EXTENDED [id number] Rena Kebede MD DILANTIN 100 MG CAPS 3 DAILY 5 PHENYTOIN SODIUM EXTENDED [id number] Rena Kebede MD DEPAKENE 250 MG ORAL CAPSULE 2 tab BY MOUTH IN AM, 2 IN PM, AND 2 AT NIGHT 0 VALPROIC ACID [id number] Madhuri Shaw MD PHENYTOIN SODIUM EXTENDED 100 MG CAPS 1 AT NIGHT 4 PHENYTOIN SODIUM EXTENDED [id number] Rena Kebede MD DEPAKENE 250 MG ORAL CAPSULE 2 tab IN AM, 2 IN PM, AND 2 AT NIGHT 4 VALPROIC ACID [id number] Rena Kebede MD DEPAKENE 250 MG ORAL CAPSULE 2 tab IN AM, 2 IN PM 9 VALPROIC ACID [id number] Rena Kebede MD DEPAKENE 250 MG ORAL CAPSULE 1 tab IN AM, 2 IN PM 9 VALPROIC ACID [id number] Rena Kebede MD DEPAKENE 250 MG ORAL CAPSULE 1 tab 2 times daily 5 VALPROIC ACID [id number] Rena Kebede MD DEPAKOTE 250 MG TBEC one tab twice a day 9 DIVALPROEX SODIUM [id number] Rena Kebede MD Medications Administered No information [...] Detail Referral Neurology Referr al SEP Neurology [facility] Neurology, [facility] [address] , [place], [address] Referral Neurology Referr al [facility] Neurology [facility] Neurology, [facility] [place], [address] Referral Neurology Referr al [facility] Neurology [facility] Neurology, [facility] [address] , [place], [address] Referral excluded fr om report: Pending order [...] Procedures Code Procedure Name Date Entry Date CPT-73686 Drug Screen w Confirmation 2 29269 [facility] # Urine Drug Screen w/o Confirmation 916 [facility] # Valproic Acid [facility] Neurology Referral S EP Neurology [place] 713 [facility] # Phenytoin (Dilantin) 201 07/10/06 713 [facility] # Phenytoin (Dilantin) 201 07/11/03 [facility] Neurology Referral S EP Neurology [place] 916 [facility] # Valproic Acid EEG No SLEEP [facility]ANG[facility] EEG Sleep Deprived 07/10 IMMORDER Immunization(s) Ordered 2013 52713 [facility] # CMP 4 46863 [facility] # Lipid Panel 4 CPT-09867 Td age 7 yrs or older 07/10 CPT-79466 IMADM >18YR IM ROUTE 1ST VAC/TOXOID 07/10 CPT-81205 IMADM >18YR IM ROUTE EA ADDL VAC/TOXOID 2 916 [facility] # Valproic Acid 713 [facility] # Phenytoin (Dilantin) 201 06/08/24 916 [facility] # Valproic Acid CPT-29737 Valproic Acid CPT-G8447 Encounter documented using a certified EH R CPT-76379 Valproic Acid CPT-90570 Valproic Acid (Outside Lab) CPT-22478 Valproic Acid (Outside Lab) CPT-61074 Venipuncture CPT-00444 Valproic Acid (Outside Lab) CPT-50890 Lipid Panel (Outside Lab) 01/16/22 Vital Signs [...]
--- OUTSIDE RECORDS SUMMARY | 2024-11-23 18:56 | XMS_ITS | Clinical Summary ---
Author Organization [employer] [facility] Address [address] [place] [phone] Phone Care Team Providers Care Engraver Steel Plate Name Role Phone Unavailable Primary Care Provider [...] 10/01/2024 1:00 PM EDT Telemedicine SEP Neurology [facility] [address] [place] [address] Caio Raphael APRN Seizure disorder (HCC) (Primary Dx); Recurrent shoulder dislocation, right 10/01/2024 Travel 09/12/2024 Refill SEP Neurology [facility] [address] [place] [address] Caio Raphael APRN Medication Refill (Levetiracetam) [...] 09/30/2025 2:00 PM EDT Telemedicine SEP Neurology [facility] [address] [place] [address] Caio Raphael APRN [address] [facility] [address] [place] [address] Health Maintenance Due Date Last [...]
--- OUTSIDE RECORDS SUMMARY | 2024-11-23 18:56 | XMS_ITS | Clinical Summary ---
Author Organization [facility] Address [address] [place] [phone] Phone [email or web address] Care Team Providers Care Assistant Media Planner Name Role Phone Josef Singh DO Primary Care Provider Allergies Active Allergy Reactions Criticality Noted Date [...] OPT OUT NO COPAY NB Care Teams Assistant Media Planner Relationship Specialty Start Date End Date Josef Singh DO [address] [place] [address] PCP - General Orthopedic Surgery 12/12/21
--- OUTSIDE RECORDS SUMMARY | 2024-11-23 18:56 | XMS_ITS | Encounter Summary ---
Author Organization [facility] [place] [address] Care Team Providers Care Boxing Instructor Name Role Phone Unavailable Primary Care Provider [...] 09/30/2025 2:00 PM EDT Telemedicine SEP Neurology [facility] [address] [place] [address] Caio Raphael, COPS [address] [address] documented as of this encounter Visit Diagnoses Not on filedocumented in this encounter
--- NOTE | 2024-11-23 19:26 | XR_ITS ---
PROCEDURE INFORMATION: Exam: XR Right Shoulder Exam date and time: 11/23/2024 7:27 PM Age: 44 years old Clinical indication: Other: Possible dislocation; Additional info: Possible right shoulder dislocation TECHNIQUE: Imaging protocol: Radiologic exam of the right shoulder. Views: 2 or more views. COMPARISON: CR XR SHOULDER RT 1V 11/21/2024 10:46 AM FINDINGS: Bones/joints: Anterior inferior dislocation of the humeral head in relation to the glenoid. No acute fracture. Incidental Hill-Sachs deformity noted. Soft tissues: Normal. IMPRESSION: Dislocated right shoulder with associated Hill-Sachs deformity.
--- NOTE | 2024-11-23 19:37 | HMH.EDGENADL ---
Discharge Plan Disposition Patient Disposition: Home, Self-Care Prescriptions Prescriptions: No Action levetiracetam 1,000 mg tablet 1,000 mg PO DAILY Patient Comments: TAKE 1 TABLET BY MOUTH TWICE A DAY oxcarbazepine [Oxtellar XR] 300 mg tablet extended release 24 hr 300 mg PO DAILY Patient Comments: PLEASE SEE ATTACHED FOR DETAILED DIRECTIONS Referrals Follow up/Referrals: Provider,Referral, MD [Primary Care Provider, Medical] - See instructions Activity Restrictions/Add. Instructions Additional Instructions/Restrictions: Follow-up with your orthopedic surgeon as well as the physical therapy team. Wear the sling until cleared by your orthopedic surgeon. If you develop any new or worsening symptoms, or if you become concerned for your health for any reason, return to the emergency department for evaluation. Clinical Impressions Clinical Impression: Anterior dislocation of right shoulder Print Language Print Language: Argentine Discharge ED Provider: Arvin Valladares Adult HPI General Chief complaint: PAIN Stated complaint: AO 11/23/24 1546 Injury right shoulder Time Seen by Provider: 11/23/24 19:00 Mode of Arrival: Ambulatory Source of Information: Patient Description of Symptoms (Recalled from ER Triage Doc. by RN): pt reports he dislocated his shoulder on saturday and today at PT it felt like it dislocated again History of Present Illness HPI narrative: Solo Forbes is a 44-year-old male with a history of epilepsy and recurrent right shoulder dislocations who presents to the emergency department for concern for right shoulder dislocation. Patient states that he had a shoulder dislocation on Saturday that was reduced in the emergency department under sedation. He was at physical therapy today when he was doing an exercise where he was laying down with 3 pound weights in his arms and felt a pop in his right shoulder and has had significant pain in this area ever since and believes it is dislocated again. He notes of depression in the lateral aspect of his right shoulder that happens whenever he dislocates it. He has limited range of motion of the shoulder secondary to pain. Related Data Home Medications ?Medication ?Instructions ?Recorded ?Confirmed levetiracetam 1,000 mg tablet 1,000 mg PO DAILY 07/17/24 08/13/24 oxcarbazepine 300 mg 300 mg PO DAILY 07/17/24 08/13/24 tablet,extended release 24 hr (Oxtellar XR) Allergies Allergy/AdvReac Type Severity Reaction Status Date / Time citalopram (From Celexa) Allergy Verified 08/13/24 14:01 [facility] Disclaimer: The information contained in this section may have been updated after the patient was seen, as this information can be updated by other users. Social History Smoking Status: Never smoker alcohol intake: never current occupational status: employed Travel in the last 8 weeks?: None Have you lived/traveled outside US in past 30 days?: No Contact w/someone who lives/traveled outside US past 30 days?: No Exposure to someone with infectious disease in past 14 days?: No Do you have a fever (greater than 100.4 F or 38 C)?: No Have you tested positive for COVID-19?: No Exposed to someone with COVID-19 in past 14 days?: No Do you have a sore throat?: No Do you have a cough?: No Do you have any weakness?: No Do you have any diarrhea?: No Are you experiencing any unusual bleeding?: No Do you have any muscle aches/pain?: No Do you have any abdominal pain?: No Are you experiencing loss of taste or smell?: No ROS Obtained: Yes Systems reviewed as appropriate & no additional complaints except as documented Physical Exam General General appearance: alert Comment: appears uncomfortable Head Head exam: atraumatic Eye Eye exam: Present normal appearance ENT ENT exam: Present normal external ear exam Neck Neck exam: Present full ROM Chest Chest inspection: Present symmetric chest wall rise Respiratory Respiratory exam: Present normal lung sounds bilaterally; Absent respiratory distress Cardiovascular Cardiovascular exam: Present regular rate and normal rhythm Abdominal Exam Abdominal exam: Present soft; Absent tenderness or guarding exam: Present deferred Extremities Exam Extremities exam: Present normal inspection Back Exam Back exam: Present normal inspection Comment: RUE: tenderness over the right shoulder with significant reduction in ROM due to pain. Neurovascularly intact distally with full ROM at the elbow. Hydroblaster strength intact. 2+ radial pulses. Asymetric shoulders on visualization Neurological Exam Neurological exam: Present alert and oriented X3 Psychiatric Psychiatric exam: Present normal affect Skin Skin exam: Present warm and dry Medical Decision Making Medical Records Screening: Per USPSTF and CDC recommendations, given the prevalence of disease in our region, it is our hospital?s policy to screen for HIV and viral Hepatitis for all patients aged 18 and over and those with ongoing risk factors. Rubin Inquiry Pt receiving controlled substance: No Vital Signs: 11/23/24 19:32 11/23/24 19:49 11/23/24 20:00 Temperature 98.8 F Temperature Source Oral Pulse Rate 72 Pulse Rate [Right] 65 Respiratory Rate 18 17 Blood Pressure 137/91 H Blood Pressure [Right Arm] 133/78 Blood Pressure Mean 103 Blood Pressure Mean [Right Arm] 96 Blood Pressure Source Blood Pressure Source [Right Arm] Blood Pressure Position Blood Pressure Position [Right Arm] 02 Sat by Pulse Oximetry 98 98 Oxygen Delivery Method Room Air Oxygen Flow Rate (LPM) 11/23/24 20:00 11/23/24 20:05 11/23/24 20:07 Temperature 98.0 F Temperature Source Oral Pulse Rate 68 Pulse Rate [Right] 69 Respiratory Rate 20 20 Blood Pressure 143/89 H Blood Pressure [Right Arm] 137/91 H Blood Pressure Mean 108 Blood Pressure Mean [Right Arm] 106 Blood Pressure Source Blood Pressure Source [Right Arm] Automatic Cuff Blood Pressure Position Blood Pressure Position [Right Arm] Supine 02 Sat by Pulse Oximetry 97 98 Oxygen Delivery Method Room Air Oxygen Flow Rate (LPM) 11/23/24 20:07 11/23/24 20:09 11/23/24 20:13 Temperature 98 F Temperature Source Oral Pulse Rate 65 Pulse Rate [Right] 68 Respiratory Rate 18 20 Blood Pressure 139/95 H Blood Pressure [Right Arm] 143/89 H Blood Pressure Mean 112 Blood Pressure Mean [Right Arm] 107 Blood Pressure Source Blood Pressure Source [Right Arm] Automatic Cuff Blood Pressure Position Blood Pressure Position [Right Arm] 02 Sat by Pulse Oximetry 98 99 Oxygen Delivery Method Nasal Cannula Oxygen Flow Rate (LPM) 2 11/23/24 20:15 11/23/24 20:15 11/23/24 20:20 Temperature Temperature Source Pulse Rate 69 62 Pulse Rate [Right] Respiratory Rate 18 22 Blood Pressure 140/91 H Blood Pressure [Right Arm] Blood Pressure Mean 110 Blood Pressure Mean [Right Arm] Blood Pressure Source Blood Pressure Source [Right Arm] Blood Pressure Position Blood Pressure Position [Right Arm] 02 Sat by Pulse Oximetry 98 94 L Oxygen Delivery Method Oxygen Flow Rate (LPM) 11/23/24 20:22 11/23/24 20:25 11/23/24 20:30 Temperature 98.0 F Temperature Source Oral Pulse Rate 64 Pulse Rate [Right] 63 Respiratory Rate 20 13 Blood Pressure 141/84 H Blood Pressure [Right Arm] 126/86 Blood Pressure Mean 92 Blood Pressure Mean [Right Arm] 99 Blood Pressure Source Blood Pressure Source [Right Arm] Automatic Cuff Blood Pressure Position Blood Pressure Position [Right Arm] 02 Sat by Pulse Oximetry 98 98 Oxygen Delivery Method Room Air Oxygen Flow Rate (LPM) 11/23/24 20:30 11/23/24 20:35 11/23/24 20:35 Temperature Temperature Source Pulse Rate 57 L Pulse Rate [Right] Respiratory Rate 15 Blood Pressure 137/90 138/95 H Blood Pressure [Right Arm] Blood Pressure Mean 104 109 Blood Pressure Mean [Right Arm] Blood Pressure Source Blood Pressure Source [Right Arm] Blood Pressure Position Blood Pressure Position [Right Arm] 02 Sat by Pulse Oximetry 99 Oxygen Delivery Method Oxygen Flow Rate (LPM) 11/23/24 20:40 11/23/24 20:40 11/23/24 20:45 Temperature Temperature Source Pulse Rate 61 Pulse Rate [Right] Respiratory Rate 18 Blood Pressure 143/97 H 150/100 H Blood Pressure [Right Arm] Blood Pressure Mean 106 110 Blood Pressure Mean [Right Arm] Blood Pressure Source Blood Pressure Source [Right Arm] Blood Pressure Position Blood Pressure Position [Right Arm] 02 Sat by Pulse Oximetry 99 Oxygen Delivery Method Oxygen Flow Rate (LPM) 11/23/24 20:45 11/23/24 20:50 11/23/24 20:50 Temperature Temperature Source Pulse Rate 62 65 Pulse Rate [Right] Respiratory Rate 17 13 Blood Pressure 156/95 H Blood Pressure [Right Arm] Blood Pressure Mean 120 Blood Pressure Mean [Right Arm] Blood Pressure Source Blood Pressure Source [Right Arm] Blood Pressure Position Blood Pressure Position [Right Arm] 02 Sat by Pulse Oximetry 99 99 Oxygen Delivery Method Oxygen Flow Rate (LPM) 11/23/24 21:00 11/23/24 21:00 11/23/24 21:21 Temperature 98.0 F Temperature Source Oral Pulse Rate 67 65 Pulse Rate [Right] Respiratory Rate 18 20 Blood Pressure 142/94 H 139/90 Blood Pressure [Right Arm] Blood Pressure Mean 116 Blood Pressure Mean [Right Arm] Blood Pressure Source Automatic Cuff Blood Pressure Source [Right Arm] Blood Pressure Position Sitting Blood Pressure Position [Right Arm] 02 Sat by Pulse Oximetry 98 Oxygen Delivery Method Room Air Oxygen Flow Rate (LPM) Orders (Tests/Meds): ED MEDICATIONS Discontinued Medications Generic Name Dose Route Start Last Admin Trade Name Cristopher PRN Reason Stop Dose Admin Acetaminophen 1,000 mg 11/23/24 19:35 Acetaminophen 500mg Tab PO 11/23/24 19:36 ONCE ONE Ibuprofen 600 mg 11/23/24 19:35 Ibuprofen 600 Mg Tablet PO 11/23/24 19:36 ONCE ONE Propofol 140 mg 11/23/24 20:33 11/23/24 20:34 Propofol 10mg/Ml 20ml Vial IV 11/23/24 20:34 140 mg ONCE ONE Administration ORDERS Category Date Time Status Shoulder XR right 1 view [XR shoulder RT 1V] Stat Exams 11/23/24 20:22 Completed Shoulder XR right miminum 2 views [XR shoulder RT min Exams 11/23/24 19:26 Completed 2V] Stat Medical Decision Narrative: Solo Forbes is a 44-year-old male with a history of epilepsy and recurrent right shoulder dislocations who presents to the emergency department for concern for right shoulder dislocation. Patient states that he had a shoulder dislocation on Saturday that was reduced in the emergency department under sedation. He was at physical therapy today when he was doing an exercise where he was laying down with 3 pound weights in his arms and felt a pop in his right shoulder and has had significant pain in this area ever since and believes it is dislocated again. He notes of depression in the lateral aspect of his right shoulder that happens whenever he dislocates it. He has limited range of motion of the shoulder secondary to pain. On arrival, patient is hemodynamically stable, in no acute respiratory distress, breathing properly on room air with appropriate oxygen saturation. Physical exam, as stated above, reveals an uncomfortable appearing male in no distress. He is GCS 15, answering questions appropriately. He has severely limited range of motion of the right shoulder secondary to pain. The right shoulder appears asymmetric compared to the left shoulder. He does have good range of motion at the right elbow and wrist with 2+ radial pulses and sensation intact. There is an obvious deformity to the right shoulder. Differential diagnosis includes, but is not limited to: Anterior shoulder dislocation, subluxation, glenohumeral joint fracture, labrum tear, rotator cuff injury, among others. The most morbid conditions were considered and workup was based on these. Workup in the emergency department included: Right shoulder x-rays. These were interpreted by me personally and demonstrated an anterior right shoulder dislocation without fracture. Given this, patient was consented for sedation using propofol for right shoulder dislocation reduction. A timeout was called prior to the procedure. Patient ultimately received 140 mg of IV propofol with successful reduction of the right shoulder with lateral tension and external rotation of the shoulder. Patient tolerated the procedure well. A postreduction x-ray was obtained and confirmed proper placement of the shoulder within the joint. See radiology reports for details. Patient was placed in a sling and returned to his preprocedure baseline but was appropriate for discharge with plan to follow-up with orthopedic team as well as the physical therapy team. Return precautions were given. All questions were answered. He demonstrated understanding and was in agreement this plan. He was then discharged from the emergency department in stable condition. Procedures Orthopedic Joint Reduction Joint #1: Time Out Performed: Yes Joint Reduction Location: shoulder Analgesia: procedural sedation (140mg propofol) Shoulder Technique Used (if applicable): traction/counter-traction and external rotation Post-reduction neuro exam: intact Post-reduction vascular: intact Post Reduction X-Ray Obtained: Yes Post Reduction X-Ray Results: reduced Splint Applied: Yes (sling) Patient Tolerated Procedure: well and no complications Procedural Sedation Presedation Evaluation: Consent was obtained for procedural sedation using propofol for reduction of her right dislocated shoulder. Patient has undergone procedural sedation before and using propofol without complication. States that he does not drink alcohol. He has no history of sleep apnea. A heart and lung assessment was performed on this patient at: 19:35 Mallampati Score:: Class I Indication: fracture/dislocation reduction Preparation: gambling monitor applied, pulse oximeter, supplemental O2 applied, suction/airway equipment at bedside and IV secured IV Propofol dose (mg): 140 Patient Tolerated Procedure: well and no complications Complications: none Additional Comments: Patient tolerated the procedure well and returned to his preprocedural baseline postreduction Critical Care Critical Care Time Critical Care Time: Yes Attestation: On 11/23/24, the high probability of a clinically significant, sudden or life threatening deterioration of the following system(s) required my full and direct attention, intervention and personal management. The time I documented below is in addition to time spent performing reported procedures but includes the following listed in this critical care notation. Total Time Total Critical Care Time: 35
--- NOTE | 2024-11-23 19:55 | PC.NURSE ---
Pt awake alert and oriented Skin pale warm and moist Resp full and easy Speech clear and appropriate IV initated and patient consented for conscious sedation for reduction of his shoulder
--- NOTE | 2024-11-23 20:22 | XR_ITS ---
PROCEDURE INFORMATION: Exam: XR Right Shoulder Exam date and time: 11/23/2024 8:24 PM Age: 44 years old Clinical indication: Pain; Shoulder; Right; Additional info: Post reduction right shoulder xray TECHNIQUE: Imaging protocol: Radiologic exam of the right shoulder. Views: 1 view. COMPARISON: CR Shoulder R 11/23/2024 7:27 PM FINDINGS: Bones/joints: Successful reduction of the dislocated right shoulder. Hill-Sachs deformity redemonstrated. Soft tissues: Normal. IMPRESSION: Successful reduction.
--- NOTE | 2024-11-23 20:24 | PC.NURSE ---
2012 BP 139/95 P-67 R-20 Sao2 98 on 2 lpm nasal O2 [id number] P-51 Sao2 96 2019 BP 123/86 P-63 Sao2 97 Pt awake throughout procedure but drowsy
--- NOTE | 2024-11-23 20:29 | PC.NURSE ---
Pt awake post sedation Post reduction film complete Sling and swath in place Radial pulses strong and equal
== END 2024-11-23 21:26 | disposition home or self-care (01) ==
PROVIDERS: Emergency Provider Student in an Organized Health Care Education/Training Program
DX: S43.014A Anterior dislocation of right humerus, initial encounter (principal); X50.0XXA Overexertion from strenuous movement or load, initial encounter
CPT/HCPCS: 23655; 24605; 73020; 73030; 99152; 99285; J2704